=== PATIENT | female | born 1950 | race Caucasian/White ===

== ENCOUNTER → 2019-06-14 | Outpatient (CLI) | payer MEDICARE, BC, SELFPAY ==
--- NOTE | 2019-06-14 12:06 | US_ITS ---
STUDY: SUPERFICIAL ULTRASOUND - LEFT BUTTOCK AREA. REASON FOR EXAM: Female, 69 years old. Palpable abnormality. TECHNIQUE: A superficial ultrasound was performed with real-time and static lane-scale imaging. COMPARISON: None. FINDINGS: The palpable abnormality in the inferior aspect of the buttock corresponds to a 3.7 cm x 2.8 cm by 2.2 cm inhomogeneous soft tissue mass with vascularity. This has a heterogeneous appearance. A biopsy may be indicated. US/Ext Non Vasc Limited/Soft Tiss IMPRESSION: The palpable abnormality corresponds to a 3.7 cm x 2.8 cm x 2.2 cm heterogeneous soft tissue mass with increased vascularity. A biopsy may be indicated for further evaluation. Electronically Signed: Deonte Pimentel, at 13:42 EDT , Service support ,
== END | disposition home or self-care (01) ==
PROVIDERS: Family Provider Internal Medicine; PCP Internal Medicine; Referring Provider Family Medicine; Visit Provider Family Medicine
DX: R22.42 Localized swelling, mass and lump, left lower limb (principal)
CPT/HCPCS: 76882

== ENCOUNTER → 2019-12-29 09:30 | Outpatient (CLI) | payer MEDICARE, BC, SELFPAY ==
--- NOTE | 2019-12-29 09:45 | RAD_ITS ---
EXAM DESCRIPTION: Upper GI CLINICAL HISTORY: 69 years Female, CHRONIC REFLUX, STARTING THIS NOVEMBER 2019 HAS BEEN EXPERIENCING CHEST TIGHTNESS AND A TIGHTNESS IN THROAT -- 200 FUORO SEC, 185.19mGy, 120 FLUORO IMAGES COMPARISON: None. TECHNIQUE: A barium was administered. 3.2 minutes of fluoroscopy time was utilized along with 10 imaging sets FINDINGS: Visualized esophagus appears to be normal. Small sliding hiatal hernia was identified. Stomach filled and appeared to be normal. No mucosal ulcerations were seen. The duodenal cap filled and appeared normal. The duodenal C-loop appear to be normal. When the patient was placed in a left lateral decubitus position a marked amount of gastroesophageal reflux was identified up to the level of the thoracic inlet. RAD/Upper GI Single Contrast IMPRESSION: A small sliding hiatal hernia was identified with a marked amount of gastroesophageal reflux up to the thoracic inlet. Electronically Signed: Roverto Aguila, at 14:58 EST Tel , Service support ,
== END ==
PROVIDERS: PCP Internal Medicine; Referring Provider Nurse Practitioner Adult Health; Visit Provider Nurse Practitioner Adult Health
DX: K21.9 Gastro-esophageal reflux disease without esophagitis (principal); R13.10 Dysphagia, unspecified
CPT/HCPCS: 74240

== ENCOUNTER → 2024-06-05 | Outpatient (CLI) | payer MEDICARE, BC, SELFPAY ==
--- NOTE | 2024-06-05 13:49 | ECHOD_ITS ---
Reason For Study: CHEST PAIN Procedure This was a 2D Doppler, Color Flow transthoracic echocardiogram. Exam performed in department. Left Ventricle Normal LV size. Left ventricular systolic function is normal. The left ventricular ejection fraction is 65 %. No regional wall motion abnormalities noted. Right Ventricle Normal RV size. Normal systolic function. Atria Normal left atrium. Normal right atrium. Mitral Valve Normal mitral valve. Tricuspid Valve Normal tricuspid valve. Mild tricuspid valve insufficiency. Pulmonary artery systolic pressure is 30 mmHg. Aortic Valve Trisinus/trileaflet aortic valve. Pulmonic Valve Normal pulmonic valve. Great Vessels Normal aortic root. The pulmonary artery is normal size. Normal inferior vena cava. Pericardium/Pleural No pericardial effusion. MMode/2D Measurements & Calculations LVIDd: 4.0 cm IVSd: 0.72 cm Ao root diam: 2.9 cm LVIDs: 2.6 cm LVPWd: 0.91 cm RVDd: 3.2 cm FS: 36.4 % LAV(MOD-bp): 34.5 ml LVAd ap4: 22.6 cm2 SV(MOD-sp4): 41.0 ml LAV(MOD-bp) Indexed: 19.4 ml/m2 LVLd ap4: 7.1 cm LAV(MOD-sp2): 34.9 ml EDV(MOD-sp4): 60.0 ml LAV(MOD-sp4): 32.8 ml EDV(sp4-el): 61.1 ml LVAs ap4: 10.8 cm2 LVLs ap4: 5.3 cm ESV(MOD-sp4): 19.0 ml ESV(sp4-el): 18.7 ml EF(MOD-sp4): 68.3 % EF(sp4-el): 69.4 % SV(sp4-el): 42.4 ml LA A4 area: 15.0 cm2 LA dimension(2D): 3.6 cm RA A4 area: 12.5 cm2 TAPSE: 2.4 cm Time Measurements MV dec time: 0.22 sec Doppler Measurements & Calculations MV E max kiet: 87.4 cm/sec Lat Peak E' Kiet: 15.0 cm/sec Med Peak E' Kiet: 8.1 cm/sec MV A max kiet: 74.7 cm/sec E/E' lat: 5.8 E/E' med: 10.8 MV E/A: 1.2 Ao V2 max: 157.7 cm/sec LV V1 max: 142.2 cm/sec PA V2 max: 91.3 cm/sec Ao max P.0 mmHg LV V1 max P.1 mmHg TR max kiet: 259.7 cm/sec TR max P.0 mmHg ECHO/Echo Complete Interpretation Summary Normal LV size. Left ventricular systolic function is normal. The left ventricular ejection fraction is 65 %. Pulmonary artery systolic pressure is 30 mmHg. Ordering Physician: Neto Sharp Referring Physician: DE OLIVERA Performed By: Yana Emerson RDCS
== END | disposition home or self-care (01) ==
LOC: CVS 13:47
PROVIDERS: PCP Internal Medicine; Referring Provider Internal Medicine Cardiovascular Disease; Visit Provider Internal Medicine Cardiovascular Disease
DX: R07.9 Chest pain, unspecified (principal); I10 Essential (primary) hypertension; R06.02 Shortness of breath; R93.1 Abnormal findings on diagnostic imaging of heart and coronary circulation; E78.2 Mixed hyperlipidemia
CPT/HCPCS: 93306

== ENCOUNTER 2024-06-14 12:28 | Outpatient (CLI) | payer MEDICARE, BC, SELFPAY ==
[2024-06-14 12:39] VITALS: BP 131/71; PULSE 50; RESP 14; O2SAT 97; BMI 29.2
--- NOTE | 2024-06-14 12:42 | CT_ITS ---
STUDY: CT CHEST WITHOUT CONTRAST REASON FOR EXAM: Female, 74 years old. ABNORMAL FINDINGS ON HEART IMAGES *limited over read only* RADIATION DOSAGE (If Supplied By Facility): CTDIvol = ( 27.14 ) mGy, DLP = ( 1503.71 ) mGycm TECHNIQUE: Transaxial imaging was performed without the administration of intravenous contrast material. Individualized dose optimization techniques were used for this CT. COMPARISON: No relevant priors. FINDINGS: CHEST There is a 6.9 mm calcified granuloma in the peripheral lateral aspect of the right lower lobe. There is no demonstrated pleural abnormality. Normal heart and pericardium. Calcified right paratracheal lymph nodes. Calcified subcarinal and right hilar lymph nodes. Normal hilar regions. Normal unenhanced pulmonary arteries. Normal aorta arch and descending thoracic aorta. Normal osseous structures. Small hiatal hernia. CT/Limited Chest CT Cardiac Only IMPRESSION: No evidence of coronary artery calcification. Calcified mediastinal and right hilar lymph nodes. Calcified granuloma in the right lower lobe. Electronically Signed: Deonte Pimentel MD at 11:04 EDT ,
[2024-06-14 12:58] VITALS: PULSE 54
[2024-06-14] MEDS: Nitroglycerin SL (ED/IMG/CATH) 0.4 MG TABLET SL (12:58)
[2024-06-14 13:06] VITALS: BP 132/62; PULSE 55; RESP 16; O2SAT 98
[2024-06-14 13:07] LABS: CREATININE FINGERSTICK < 1.0 mg/dL (0.55-1.02); EGFR FINGERSTICK > 60.0000 mL/min (>60)
--- NOTE | 2024-07-04 15:15 | CCTA.WCONT ---
CCTA w/Cont Coronary Arteries Date of Study:: 06/14/24 Abnormal diagnostic imaging Coronary Calcium Scoring: High-resolution Computed Tomographic imaging of the chest was performed on [06/14/2024], with particular attention paid to the coronary arteries. Intravenous contrast agent was administered per protocol and images reconstructed and displayed. LEFT MAIN CORONARY ARTERY: Coronary calcium score of 0. This arises from the left main coronary cusp and has no atherosclerotic plaquing noted. [] LEFT ANTERIOR DESCENDING CORONARY ARTERY: Arises from the left main coronary artery and courses towards the apex of the ventricle with no significant atherosclerotic plaquing present. Coronary calcium score of 0 [] LEFT CIRCUMFLEX CORONARY ARTERY: Nondominant vessel arising from the left main coronary artery with no significant atherosclerotic plaquing noted. [] RIGHT CORONARY ARTERY: Dominant right coronary artery with no significant atherosclerotic plaquing present. [] THORACIC AORTA: Normal [] PULMONARY ARTERY: Normal [] LEFT ATRIUM/APPENDAGE: [] MITRAL VALVE: Normal [] AORTIC VALVE: [] LEFT VENTRICLE: [] CORONARY CALCIUM SCORE: 0 CT angio with no evidence of atherosclerotic plaquing present. []
== END 2024-06-14 23:59 | disposition home or self-care (01) ==
LOC: CT 12:29
PROVIDERS: PCP Internal Medicine; Referring Provider Internal Medicine Cardiovascular Disease; Visit Provider Internal Medicine Cardiovascular Disease
DX: R93.1 Abnormal findings on diagnostic imaging of heart and coronary circulation (principal); R06.02 Shortness of breath; R07.9 Chest pain, unspecified; I10 Essential (primary) hypertension; E78.2 Mixed hyperlipidemia; K44.9 Diaphragmatic hernia without obstruction or gangrene
CPT/HCPCS: 75571; 75574; 76380

== ENCOUNTER 2025-02-04 10:57 | Emergency (ER) | payer MEDICARE, BC, SELFPAY ==
[2025-02-04 10:58] VITALS: BP 143/67; PULSE 64; RESP 15; TEMP 36.4; O2SAT 97; BMI 30.2
--- NOTE | 2025-02-04 11:06 | ED.VIS.FALL ---
HPI HPI - Fall History of Present Illness Chief Complaint: Fall PFSH PFSH Medical History Hypercholesteremia Stage 3a chronic kidney disease (CKD) Dyspepsia Bleeding disorder Mixed hyperlipidemia HTN (hypertension) SOB (shortness of breath) Abnormal nuclear cardiac imaging test Arthropathy Diverticulosis of colon (without mention of hemorrhage) Internal hemorrhoids without mention of complication Esophageal reflux Osteoporosis Osteopenia Chest pain Home Medications ?Medication ?Instructions ?Recorded ?Last Taken ?Type acetaminophen 500 mg capsule 500 mg PO Q6H PRN pain 04/26/24 Unknown History carboxymethylcellulose sodium 0.5 1 drp ophthalmic (eye) DAILY 04/26/24 Unknown History % eye drops (Refresh Tears) famotidine 40 mg tablet 40 mg PO DAILY 04/26/24 Unknown History loratadine 10 mg tablet 10 mg PO DAILY PRN allergy symptoms 04/26/24 Unknown History multivitamin 1 tab PO DAILY 04/26/24 Unknown History naproxen sodium 220 mg tablet 220 mg PO BID PRN pain 04/26/24 Unknown History (Aleve) rosuvastatin 5 mg tablet 5 mg PO DAILY 04/26/24 Unknown History estradiol 0.01% (0.1 mg/gram) 1 appful vaginal 2XW 05/16/24 Unknown History vaginal cream amlodipine 5 mg tablet 5 mg PO QDAY #90 tabs 07/31/24 Unknown Rx oxycodone 5 mg tablet 5 mg PO Q6H PRN pain 4 days #16 02/04/25 Unknown Rx tabs Allergy/AdvReac Type Severity Reaction Status Date / Time alendronate sodium (From AdvReac Intermediate GI upset Verified 02/04/25 11:02 Fosamax) ibandronate sodium (From AdvReac Intermediate migraine Verified 02/04/25 11:02 Boniva) risedronate sodium (From AdvReac Intermediate bones Verified 02/04/25 11:02 Actonel) aching Family History Mother Thyroid disorder Osteoporosis Aortic stenosis Father Hypertension Osteoporosis Sister Thyroid disorder Brother Thyroid disorder CAD (coronary artery disease), Onset Age: 50 stents Surgical History Hx of elbow surgery (~2001) Hx of knee surgery (~2001) History of facial surgery Hx of hand surgery History of tonsillectomy and adenoidectomy Social History Smoking Status: Never smoker how long ago did patient quit smokin alcohol intake: current alcohol intake frequency: a few times a month substance use type: does not use caffeine: Yes Type: tea Number of servings: 4 EXAM Physical Exam Const Vital Signs: 02/04/25 10:58 02/04/25 11:16 02/04/25 12:58 Temperature 97.6 F L Temperature Source Temporal Pulse Rate 64 75 Respiratory Rate 15 16 Respiratory Effort Normal Non-Labored Blood Pressure 143/67 H 134/73 H Blood Pressure Mean 92 93 Pulse Ox 97 97 Oxygen Delivery Method Room Air Room Air Room Air 02/04/25 13:58 Temperature 97.6 F L Temperature Source Pulse Rate 75 Respiratory Rate 16 Respiratory Effort Blood Pressure 134/73 H Blood Pressure Mean 93 Pulse Ox 97 Oxygen Delivery Method MDM MDM MDM Narrative Medical decision making narrative: HISTORY OF PRESENT ILLNESS: Chief complaint: Fall 74-year-old female presents after fall. No head trauma. Denies loss of consciousness. Notes transient lightheadedness after fall. She states this occurs when she has orthopedic injuries. She states she severe left wrist pain. Also notes pain in her knees which she says is not severe. Also notes pain right elbow REVIEW OF SYSTEMS: Pertinent positives: Head trauma, wrist pain, elbow and knee pain Pertinent negatives: Loss of consciousness PHYSICAL EXAM: Nursing triage notes reviewed, Vital signs reviewed primary Survey Airway: Intact Breathing: Bilateral breath sounds Circulation: Palpable bilateral femorals, Palpable bilateral radial, Palpable bilateral DP and Palpable bilateral PT Disability / Spine precautions GCS Score: Eye Openin Verbal Response: 5 Motor Response: 6 Secondary Survey Constitutional: Please see MDM Head: abrasion noted to chin, Midface stable, NO jaw malocclusion, No Cephalohematoma, and No Lacerations noted Eye: Pupils equal round and reactive to light, Extraocular muscles intact and No periorbital ecchymosis or stepoff, no evidence of entrapment ENT: Oropharynx clear, no lacerations, no hemotympanum, no raccoon eyes or bray sign Cervical spine / Neck: No cervical spine bony tenderness, crepitance, or stepoff deformity Trachea midline Lungs: Clear to auscultation, No asymmetric rise and No crepitus, no flail chest Cardiac: Regular rate and rhythm and No murmurs Abdomen: Soft, Nontender and No rebound Pelvis: Pelvis stable to compression : No evidence of genital injury Back: No midline bony tenderness to thoracic/lumbar/sacral spines Neuro: Alert and oriented x3, neuro exam at baseline, cranial nerves II through XII are intact. No pain with extraocular muscle movement. There is negative test of skew. 5 of 5 strength in upper and lower extremities in flexion extension. Intact sensation to light touch in upper and lower extremity dermatomes. No truncal or extremity ataxia. No dysdiadochokinesia. Normal gait. 2+ reflexes in upper and lower extremities. No meningeal signs. Negative Babinski. NIH of 0. Extremities: NO gross Deformities, TTP over left wrist, bruising noted over left wrist, no obvious pain or bruising over other joints Psych: Normal affect Nursing triage notes reviewed, Vital signs reviewed MEDICAL DECISION MAKING: Chief Complaint: please see HPI External records reviewed: Reviewed prior imaging Factors affecting care: Hyperlipidemia, hypertension Social determinants of health: none History obtained from others: none Consults: orthopedic surgery (Dr. Vegas) MDM Narrative: I considered the following differential diagnosis: ICH, wrist fracture/dislocation/contusion I obtained imaging studies to further evaluate for traumatic injury. ALL IMAGES (IF OBTAINED) HAVE BEEN PERSONALLY REVIEWED AND INTERPRETED BY MYSELF. X-ray left wrist read reviewed person myself showed a distal radius fracture with some palmar angulation. CT scan of the brain was negative for ICH or other traumatic abnormality Splint was applied. Patient was neurovascular intact prior to and after splinting. Discussed with orthopedic surgeon on-call who recommended discharge and prompt follow-up. [id number] and narcotic pain recommendations were given. Strict return precautions were discussed. Compartment syndrome precautions were discussed. The patient and/or family, caregivers express understanding. The patient and/or family, caregivers agrees with the plan. Shared decision making: I will have a discussion with the patient and or visitors regarding risk/benefits of further testing or admission. They will be made aware of of the risk/benefits inherent in this decision they will be given the opportunity to voice understanding. Total critical care time today provided was at least 0 minutes. This excludes separately billable procedures. Critical care time (if documented) is secondary to the patient having high probability of clinically significant/life threatening deterioration in the patient's condition which required my urgent intervention. Impression: 1. Fall 2. Closed head injury 3. Acute left wrist pain Dispo: Discharge home This note was generated with [employer] dictation software. It may contain incorrect words, spelling, and punctuation that were not noted in review of the chart prior to signing. Radiography Diagnostic Testing: Clinical Impression(s) from Imaging Studies Brain CT 02/04/25 11:23 IMPRESSION: 1. No acute intracranial finding. 2. Findings of chronic microvascular ischemic changes and age-related changes. Reading Location: [id number] Wrist X-Ray 02/04/25 11:23 IMPRESSION: Radius fractures as detailed Reading Location: [facility] Procedures Upper Extremity Splints Upper Extremity Splint: Plaster Splint Fabrication: Fabricated Location: Left Discharge Plan Triage Chief Complaint: Fall ED Provider: Jesu Yuan Dx/Rx/DC Orders Instructions: ED Fall with Uncertain Cause, ED Fracture, Wrist, General Prescriptions: New oxycodone 5 mg tablet 5 mg PO Q6H PRN (Reason: pain) 4 Days Qty: 16 0RF No Action rosuvastatin 5 mg tablet 5 mg PO DAILY famotidine 40 mg tablet 40 mg PO DAILY loratadine 10 mg tablet 10 mg PO DAILY PRN (Reason: allergy symptoms) carboxymethylcellulose sodium [Refresh Tears] 0.5 % drops 1 drp ophthalmic (eye) DAILY multivitamin Tablet 1 tab PO DAILY naproxen sodium [Aleve] 220 mg tablet 220 mg PO BID PRN (Reason: pain) acetaminophen 500 mg capsule 500 mg PO Q6H PRN (Reason: pain) estradiol 0.01 % (0.1 mg/gram) cream 1 appful vaginal 2XW Rx Instructions: for 14 days amlodipine 5 mg tablet 5 mg PO QDAY Qty: 90 3RF Primary Care Provider: Chichi Page Referrals: Ge Mejia DO [Med Staff - Active Staff] - Chichi Page MD [Primary Care Provider] - Activity Restrictions/Additional Instructions: Thank you for trusting us with your care today! The x-ray of your left wrist showed a wrist fracture. Please take Tylenol (2 pills, 650 mg), ibuprofen (2 pills, 400 mg) every 6 hours as needed for pain and fever control. Please take oxycodone for breakthrough pain. Please return to the emergency department if your symptoms change or worsen. If you develop discoloration, severe pain, numbness tingling in your injured extremity please remove the splint immediately. Please follow with Orthopedic Surgeon (Dr. Mejia) for further outpatient evaluation and management. Print Language: Malay Disposition Disposition: Home, Self Care Discharge Date/Time: 02/04/25 13:58
--- NOTE | 2025-02-04 11:23 | CT_ITS ---
EXAM: BRAIN/HEAD WITHOUT CONTRAST CLINICAL HISTORY: 74 y/o F with HEAD TRAUMA AFTER FALL yesterday in parking lot, abrasion to chin, history of facial surgery and bleeding disorder. COMPARISON: None. TECHNIQUE: Routine CT imaging of the head without IV contrast. Additional multiplanar reformats were obtained. Dose reduction techniques were used including intermediate exposure control (AEC),iterative reconstruction technique, and/or mA and/or KV dose adjustments based on patient's size. FINDINGS: Mild generalized cerebral volume loss with concordant prominence of the ventricles and subarachnoid spaces. Mild scattered supratentorial white matter hypodensities. The lane-white matter interfaces are otherwise maintained. No acute intracranial hemorrhage or herniation. The basal cisterns are patent. Mucosal thickening of the bilateral maxillary sinuses. The orbits and mastoids are unremarkable. No acute calvarial fracture or scalp hematoma. CT/Brain/Head without Contrast IMPRESSION: 1. No acute intracranial finding. 2. Findings of chronic microvascular ischemic changes and age-related changes. Reading Location: [id number]
--- NOTE | 2025-02-04 11:23 | RAD_ITS ---
EXAM: Left wrist radiograph exam, three-view CLINICAL HISTORY: Pain status post fall yesterday, initial encounter COMPARISON: None. TECHNIQUE: PA frontal, oblique and lateral radiographs were obtained of the left wrist. FINDINGS: There is a radial styloid process fracture. Linear sclerotic focus in the distal radial metaphysis could possibly represent impaction fracture or butterfly fragment as suggested on the lateral view. Distal radius fracture demonstrates at least 4 mm palmar offset. RAD/Wrist min 3 Views IMPRESSION: Radius fractures as detailed Reading [facility]
[2025-02-04 12:58] VITALS: BP 134/73; PULSE 75; RESP 16; O2SAT 97
[2025-02-04 13:58] VITALS: BP 134/73; PULSE 75; RESP 16; TEMP 36.4; O2SAT 97
== END 2025-02-04 13:58 | disposition home or self-care (01) ==
PROVIDERS: Emergency Provider Emergency Medicine; PCP Internal Medicine; Visit Provider Emergency Medicine
DX: S52.502A Unspecified fracture of the lower end of left radius, initial encounter for closed fracture (principal); S00.81XA Abrasion of other part of head, initial encounter; M25.561 Pain in right knee; M25.562 Pain in left knee; M25.521 Pain in right elbow; W19.XXXA Unspecified fall, initial encounter; I10 Essential (primary) hypertension; K21.9 Gastro-esophageal reflux disease without esophagitis; E78.00 Pure hypercholesterolemia, unspecified; M81.0 Age-related osteoporosis without current pathological fracture; Z79.899 Other long term (current) drug therapy
CPT/HCPCS: 29125; 70450; 73110; 99282

== ENCOUNTER 2025-02-09 09:27 | Day surgery (SDC) | payer MEDICARE, BC, SELFPAY ==
--- NOTE | 2025-02-08 10:31 | PAT.ANE_ITS ---
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 When Was Last Pacemaker Check QUESTION #4 FULL TEXT: You/Your Family Experience fever (hyperthermia) with Anesthesia Last Oral Intake Last Oral intake: Last Oral Intake NPO since Meds taken in AM with sips of water? 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 - automatic outsole cutter: PONV - automatic outsole cutter Female Yes 02/08/25 08:58 HX of Motion Sickness Yes 02/08/25 08:58 HX of N/V After Surgery No 02/08/25 08:58 Non-Smoker Yes 02/08/25 08:58 Duration of Surgery greater Yes 02/08/25 08:58 than 60 minutes Number of Risk Factors 4 02/08/25 08:58 PONV Score Severe Risk 02/08/25 08:58 Height & Weight Height & Weight: Anesthesia: Height & Weight Height 5 ft 3 in 02/08/25 09:42 Weight: 76.657 kg 02/08/25 09:42 Respiratory Assessment Respiratory Assessment - automatic outsole cutter: Respiratory Tract Infection Hx - automatic outsole cutter Hx Respiratory Tract Infection No 02/08/25 08:58 STOP Sleep Apnea STOP Sleep Apnea - automatic outsole cutter: STOP Sleep Apnea - automatic outsole cutter Hx Hypertension Yes: CONTROLLED WITH MED 02/08/25 08:58 Hx Sleep Apnea No 02/08/25 08:58 CPAP BIPAP Do you snore loudly (louder No 02/08/25 08:58 than talking or can be heard Do you often feel tired/ No 02/08/25 08:58 fatigued/ sleepy during daytime? Has anyone observed you stop No 02/08/25 08:58 breathing during sleep? STOP Results Negative 02/08/25 08:58 QUESTION #5 FULL TEXT : Do you snore loudly (louder than talking or can be heard through closed doors)? 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 Specify any problems Hx of Preganancy in last 3 No 02/08/25 08:58 Months Nurse Filling Out Transfusion DSCHRIBER 02/08/25 08:58 & Questions: Date: 02/08/25 02/08/25 08:58 Time: 09:00 02/08/25 08:58 Patient unable to answer at this time (ie. confused, unrespo /Reproduction History /Reproductive History - automatic outsole cutter: /Reproductive Hx- automatic outsole cutter Hx Now No 02/08/25 08:58 Gestational Age (in weeks): EDC: Hx Hx Para Hx Section SAB No 02/08/25 08:58 Active Medications Active Medications: Current Medications Generic Name Dose Route Start Last Admin Trade Name Freq PRN Reason Stop Dose Admin Cefazolin Sodium 2 gm/ N/A 20 mls @ 400 mls/hr 02/09/25 11:00 IV 02/09/25 11:02 X1 ONE [facility] Medical History (Updated 02/08/25 @ 09:09 by Jayla Hernandez) Loss of hearing Wears glasses Alcohol use Post-menopausal Abrasion Arthritis Anemia Excessive bleeding Back pain Migraine headache Injury of head and neck History of hiatal hernia Ulcerative proctitis Gastric reflux Non-smoker Shortness of breath on exertion Leg cramps History of pain when walking Cardiology follow-up encounter History of echocardiogram History of stress test Stage 3a chronic kidney disease (CKD) Mixed hyperlipidemia HTN (hypertension) Internal hemorrhoids without mention of complication Osteoporosis Osteopenia Home Medications ?Medication ?Instructions ?Recorded ?Last Taken ?Type acetaminophen 500 mg capsule 500 mg PO Q6H PRN pain Unknown History carboxymethylcellulose sodium 0.5 1 drp ophthalmic (ey e) DAILY 04/26/24 Unknown History % eye drops (Refresh Tears) famotidine 40 mg tablet 40 mg PO QHS 04/26/24 Unknow n History loratadine 10 mg tablet 10 mg PO DAILY PRN allergy s ymptoms 04/26/24 Unknown History multivitamin 1 tab PO DAILY 04/26/24 Unkn own History naproxen sodium 220 mg tablet 220 mg PO BID PRN pain 0 04/26/24 Unknown History (Aleve) rosuvastatin 5 mg tablet 5 mg PO QHS 04/26/24 Unknown History estradiol 0.01% (0.1 mg/gram) 1 appful vaginal 2XW Unknown History vaginal cream amlodipine 5 mg tablet 5 mg PO QDAY #90 tabs Unknown Rx Allergy/AdvReac Type Severity Reaction Status Date / Time alendronate sodium (From AdvReac Intermediate GI upset Verified 02/08/25 08:53 Fosamax) ibandronate sodium (From AdvReac Intermediate migraine Verified 02/08/25 08:53 Boniva) risedronate sodium (From AdvReac Intermediate bones Verified 02/08/25 08:53 Actonel) aching Family History Mother Thyroid disorder Osteoporosis Aortic stenosis Father Hypertension Osteoporosis Sister Thyroid disorder Brother Thyroid disorder CAD (coronary artery disease), Onset Age: 50 stents Surgical History (Updated 02/08/25 @ 09:09 by Jayla Hernandez) Hx of colonoscopy History of wisdom tooth extraction Hx of elbow surgery (~2001) Hx of knee surgery (~2001) History of facial surgery Hx of hand surgery History of tonsillectomy and adenoidectomy Social History Smoking Status: Never smoker how long ago did patient quit smokin alcohol intake: current alcohol intake frequency: a few times a month substance use type: does not use caffeine: Yes Type: tea Number of servings: 4 Audit: Pertinent Findings Pertinent Findings EKG Perinent findings: May 16, 2024. Sinus bradycardia within normal limits Stress test pertinent findings: April 21, 2023. SPECT perfusion study is abnormal. No evidence of infarct. Mild less than 10% ischemia in the territory of the RCA. Ejection fraction is 75%. There is transient ischemic dilation of the left ventricle with stress. Echo (EF%) pertinent findings: June 05, 2024. Ejection fraction 65%. PA systolic pressure is 30 mmHg. No aortic valve stenosis is noted. Consult pertinent findings: July 31, 2024. 1. Shortness of breath-resolved. 2. Abnormal nuclear cardiac [id number] coronary CT angio. Calcium score is 0. False positive stress test. 3. Wjoafpvdjdgo-hvssskj-[id number] complaining of postural orthostatic lightheadedness. Will stop metoprolol. No coronary artery disease was seen on CT angio. DC the Imdur. Start on amlodipine 5 mg daily. 4. Postural lightheadedness-patient is on metoprolol. Will DC metoprolol. Recommendation Anesthesia Recommendation Anesthesia recommendation: OPTIMIZED for anesthesia
[2025-02-09] VITALS (9 sets, daily range): BP systolic 114–133; BP diastolic 54–73; PULSE 64–75; RESP 16–18; TEMP 36.1–36.6; O2SAT 94–99; BMI 30.2
[2025-02-09] MEDS: 0.9% Normal Saline (1000mL) 1,000 ML 15 ML IV (10:10)
--- NOTE | 2025-02-09 10:16 | PCM.PRE.AN2 ---
ASA Classification* ASA Classification ASA Classification: 2 Assessment & Plan Anesthesia* Anesthesia Assessment Anesthesia Assessment: Discussed sedation and/or anesthesia options, risks, benefits, and alternatives with patient/parents/legal guardian/POA. Questions invited. The patient/parents/legal guardian/POA seems to understand and agrees to proceed with anesthesia plan. Reviewed the physical assessment, medical history, allergy history and patient home medications list prior to surgery/procedure/anesthetic and documented any changes. Performed airway and anesthesia risk assessments. 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 When Was Last Pacemaker Check QUESTION #4 FULL TEXT: You/Your Family Experience fever (hyperthermia) with Anesthesia Last Oral Intake Last Oral intake: Last Oral Intake NPO since Meds taken in AM with sips of water? 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 operator Female Yes 02/08/25 08:58 HX of Motion Sickness Yes 02/08/25 08:58 HX of N/V After Surgery No 02/08/25 08:58 Non-Smoker Yes 02/08/25 08:58 Duration of Surgery greater Yes 02/08/25 08:58 than 60 minutes Number of Risk Factors 4 02/08/25 08:58 PONV Score Severe Risk 02/08/25 08:58 Height & Weight Height & Weight: Anesthesia: Height & Weight Height 5 ft 3 in 02/08/25 09:42 Weight: 76.657 kg 02/08/25 09:42 Respiratory Assessment Respiratory Assessment - hydraulic bull riveter operator: Respiratory Tract Infection Hx - hydraulic bull riveter operator Hx Respiratory Tract Infection No 02/08/25 08:58 STOP Sleep Apnea STOP Sleep Apnea - hydraulic bull riveter operator: STOP Sleep Apnea - hydraulic bull riveter operator Hx Hypertension Yes: CONTROLLED WITH MED 02/08/25 08:58 Hx Sleep Apnea No 02/08/25 08:58 CPAP BIPAP Do you snore loudly (louder No 02/08/25 08:58 than talking or can be heard Do you often feel tired/ No 02/08/25 08:58 fatigued/ sleepy during daytime? Has anyone observed you stop No 02/08/25 08:58 breathing during sleep? STOP Results Negative 02/08/25 08:58 QUESTION #5 FULL TEXT : Do you snore loudly (louder than talking or can be heard through closed doors)? 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 Specify any problems Hx of Preganancy in last 3 No 02/08/25 08:58 Months Nurse Filling Out Transfusion DSCHRIBER 02/08/25 08:58 & Questions: Date: 02/08/25 02/08/25 08:58 Time: 09:00 02/08/25 08:58 Patient unable to answer at this time (ie. confused, unrespo /Reproduction History /Reproductive History - hydraulic bull riveter operator: /Reproductive Hx- hydraulic bull riveter operator Hx Now No 02/08/25 08:58 Gestational Age (in weeks): EDC: Hx Hx Para Hx Section SAB No 02/08/25 08:58 Active Medications Active Medications: Current Medications Generic Name Dose Route Start Last Admin Trade Name Freq PRN Reason Stop Dose Admin Cefazolin Sodium 2 gm/ N/A 20 mls @ 400 mls/hr 02/09/25 11:00 IV 02/09/25 11:02 X1 ONE Sodium Chloride 1,000 mls @ 15 mls/hr 02/09/25 10:10 IV .Q48H STEVO PFSH Medical History Loss of hearing Wears glasses Alcohol use Post-menopausal Abrasion Arthritis Anemia Excessive bleeding Back pain Migraine headache Injury of head and neck History of hiatal hernia Ulcerative proctitis Gastric reflux Non-smoker Shortness of breath on exertion Leg cramps History of pain when walking Cardiology follow-up encounter History of echocardiogram History of stress test Stage 3a chronic kidney disease (CKD) Mixed hyperlipidemia HTN (hypertension) Internal hemorrhoids without mention of complication Osteoporosis Osteopenia Home Medications ?Medication ?Instructions ?Recorded ?Last Taken ?Type acetaminophen 500 mg capsule 500 mg PO Q6H PRN pain 04/26/24 Unknown History carboxymethylcellulose sodium 0.5 1 drp ophthalmic (eye) DAILY 04/26/24 Unknown History % eye drops (Refresh Tears) famotidine 40 mg tablet 40 mg PO QHS 04/26/24 Unknown History loratadine 10 mg tablet 10 mg PO DAILY PRN allergy symptoms 04/26/24 Unknown History multivitamin 1 tab PO DAILY 04/26/24 Unknown History naproxen sodium 220 mg tablet 220 mg PO BID PRN pain 04/26/24 Unknown History (Aleve) rosuvastatin 5 mg tablet 5 mg PO QHS 04/26/24 Unknown History estradiol 0.01% (0.1 mg/gram) 1 appful vaginal 2XW 05/16/24 Unknown History vaginal cream amlodipine 5 mg tablet 5 mg PO QDAY #90 tabs 07/31/24 02/09/25 07:00 Rx Allergy/AdvReac Type Severity Reaction Status Date / Time alendronate sodium (From AdvReac Intermediate GI upset Verified 02/09/25 09:57 Fosamax) ibandronate sodium (From AdvReac Intermediate migraine Verified 02/09/25 09:57 Boniva) risedronate sodium (From AdvReac Intermediate bones Verified 02/09/25 09:57 Actonel) aching Family History Mother Thyroid disorder Osteoporosis Aortic stenosis Father Hypertension Osteoporosis Sister Thyroid disorder Brother Thyroid disorder CAD (coronary artery disease), Onset Age: 50 stents Surgical History Hx of colonoscopy History of wisdom tooth extraction Hx of elbow surgery (~2001) Hx of knee surgery (~2001) History of facial surgery Hx of hand surgery History of tonsillectomy and adenoidectomy Social History Smoking Status: Never smoker how long ago did patient quit smokin alcohol intake: current alcohol intake frequency: a few times a month substance use type: does not use caffeine: Yes Type: tea Number of servings: 4 Review of Systems (Anesthesia) ROS Narrative System reviewed and no additional complaints, except as documented.
[2025-02-09 10:53] LABS: International Normalized Ratio 0.9; Prothrombin Time (Protime)PT. 12.4 SECONDS (11.7-14.9)
[2025-02-09 10:54] LABS: Partial Thromboplast Time 23.6 Seconds (24.1-36.2)
--- NOTE | 2025-02-09 10:57 | PCM.HP.BLA ---
History and Physical Date of Admission: 02/09/25 [facility] [address] [place] [address] OFFICE VISIT Date of Service: 02/07/25 MR#: [id number] Acct: [id number] Name: BORA DIXON Rep #: [id number] : 1950 Provider: Dr. Ge Mejia DO Age/Sex: 74/F Location: [facility] [place] Status: Signed Intake Vital Signs 02/04/2510:58 02/07/2510:28 Height 5 ft 3 in 5 ft 3 in Weight: 169 lb 8 oz BMI 30.0 Intake Visit Reasons: LEFT WRIST Chief Complaint: Left wrist Fracture Accompanied by: Friend Is patient in pain?: Yes Pain scale (1-10): 2 Allergies alendronate sodium (From Fosamax) Adverse Reaction (Intermediate, Verified 02/07/25 10:31) GI upsetibandronate sodium (From Boniva) Adverse Reaction (Intermediate, Verified 02/07/25 10:31) migrainerisedronate sodium (From Actonel) Adverse Reaction (Intermediate, Verified 02/07/25 10:31) bones aching Medications ?Medication ?Instructions ?Recorded ?Confirmed ?Type acetaminophen 500 mg capsule 500 mg PO Q6H PRN pain 04/26/24 02/07/25 History carboxymethylcellulose sodium 0.5 1 drp ophthalmic (eye) DAILY 04/26/24 02/07/25 History % eye drops (Refresh Tears) famotidine 40 mg tablet 40 mg PO DAILY 04/26/24 02/07/25 History loratadine 10 mg tablet 10 mg PO DAILY PRN allergy symptoms 04/26/24 02/07/25 History multivitamin 1 tab PO DAILY 04/26/24 02/07/25 History naproxen sodium 220 mg tablet 220 mg PO BID PRN pain 04/26/24 02/07/25 History (Aleve) rosuvastatin 5 mg tablet 5 mg PO DAILY 04/26/24 02/07/25 History estradiol 0.01% (0.1 mg/gram) 1 appful vaginal 2XW 05/16/24 02/07/25 History vaginal cream amlodipine 5 mg tablet 5 mg PO QDAY #90 tabs 07/31/24 02/07/25 Rx Have you fallen in the past year?: Yes PFSH Medical History Hypercholesteremia Stage 3a chronic kidney disease (CKD) Dyspepsia Bleeding disorder Mixed hyperlipidemia HTN (hypertension) SOB (shortness of breath) Abnormal nuclear cardiac imaging test Arthropathy Diverticulosis of colon (without mention of hemorrhage) Internal hemorrhoids without mention of complication Esophageal reflux Osteoporosis Osteopenia Chest pain Surgical History Hx of elbow surgery (~2001) Hx of knee surgery (~2001) History of facial surgery Hx of hand surgery History of tonsillectomy and adenoidectomy Family History Mother Thyroid disorder Osteoporosis Aortic stenosisFather Hypertension OsteoporosisSister Thyroid disorderBrother Thyroid disorder CAD (coronary artery disease), Onset Age: 50 stents Social History Smoking Status: Never smoker how long ago did patient quit smokin alcohol intake: current alcohol intake frequency: a few times a month substance use type: does not use caffeine: Yes Type: tea Number of servings: 4 HPI LEFT WRIST Details: This documentation accurately reflects the service provided and the decisions made by me, Dr. Ge Mejia, DO 02/07/25 0802. Part of today?s visit was documented by Fabiano Camarena MA, acting as scribe. BORA DIXON is a 74 year old F LHD here today for left wrist fracture DOI 02/03/2025 patient tripped getting out of the car fell on the payment onto an outstretched left hand try to catch herself went to the ER 02/04/2025 x-rays were taken demonstrating a fracture she was placed in a sugar-tong splint which was very uncomfortable for her. She denies any numbness or tingling. 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 Ortho Exam General General: Yes no acute distress and Yes well groomed Neurologic: Yes alert and Yes oriented x3 Psychologic: Yes reasonable and appropriate Left Wrist/Hand WRIST: Splint was removed there was swelling and ecchymosis however positive wrinkle sign radial median ulnar nerves and PIN intact. Palpable radial pulse intact sensation light touch. No open wound Constitutional: Well-developed; well-nourished; in no acute distress Eyes: No jaundice ENT: Nares patent; no obvious deformity Cardiovascular: No cyanosis; clubbing; or edema Lymphatic: No adenopathy in area of examination Skin: No rashes or lesions in the area of examination and intact Neurologic: Alert and oriented x 3 Psychiatric: Mood and affect appropriate Supplemental Info 02/07/2025 x-ray left wrist: There is a distal radius intra-articular fracture with displacement and angulation, there is osteopenia present 02/04/2025 x-ray left wrist: There is a radial styloid process fracture. Linear sclerotic focus in the distal radial metaphysis could possibly represent impaction fracture or butterfly fragment as suggested on the lateral view. Distal radius fracture demonstrates at least 4 mm palmar offset. Coding Level of Care Code Off vis,new,level 3 Diagnoses Closed Chun's fracture of left radius, initial encounter S52.562A Encounter type: initial encounter Fracture type: closed Fracture morphology: Chun's Assessment and Plan Assessment and Plan (1) Distal radius fracture, left: Status: Acute Qualifiers: Encounter type: initial encounter Fracture type: closed Fracture morphology: Chun's Qualified Code(s): S52.562A - Chun's fracture of left radius, initial encounter for closed fracture Orders: Orders Wrist min 3 Views Today S62.109A - Fracture of unspecified carpal bone, unspecified wrist, initial encounter for closed fracture Plan Obtained and reviewed left wrist x-rays with the patient today. Explained to her that she does have an intra-articular distal radius fracture with displacement she also has a spike of bone that is projecting perpendicular to the shaft which can cause irritation likely she does not have any nerve symptoms today. The fracture is displaced it is better appreciated on the lateral view and it is, there is also a nondisplaced extension into the radial styloid that is comminuted. We did discuss Her options: Surgical pause nonsurgical intervention including risk and benefits of both. Surgical intervention would not consist of open reduction internal fixation with plate and screws which has the benefit of early mobilization and fracture realignment minimizing risk of posttraumatic arthritis however it still can occur, in addition risks include but are not limited to infection nerve artery soft tissue damage hardware irritation or failure, stiffness. Alternatively we could immobilize the wrist for 6 weeks. Due to her crocheting and left hand dominance and flute playing she wishes to proceed with ORIF. Did place her in a plaster splint today in the meantime before surgery. Explained she should not take any Ibuprofen/Aleve leading up to surgery. She can take Tylenol leading up to surgery. Placed the patient in a plaster splint today. Explained to try and keep it dry if she can. She should try to keep the arm elevated as much as possible. Follow up after surgery for post-op appointments or sooner if pain, swelling, numbness or associated symptoms, or concerns develop. All questions answered. Patient in agreement of plan. Clinical Quality Measures Falls Risk Screening/Assistive Devices Have you fallen in the past year?: Yes 02/07/25 4333 <Electronically signed by Ge Mejia DO> Date Ge Mejia DO I have examined the patient and the H&P has been reviewed. There are no clinical changes since date of exam.
[2025-02-09] MEDS: Cefazolin 2 GM in Syringe IV (11:19)
--- NOTE | 2025-02-09 11:20 | RAD_ITS ---
EXAM: XR Left Wrist, 2 Views CLINICAL INDICATION: ORIF LT WRIST TECHNIQUE: Frontal and lateral views of the left wrist. COMPARISON: No relevant prior studies available. FINDINGS: BONES/JOINTS: Fluoroscopic guided images were used intraoperatively. Total 5 images were obtained. Fixation plate and screws to the distal radius. Total fluoroscopy time 42.4 seconds. Total radiation dose 0.78 mGy. No acute fracture. No dislocation. SOFT TISSUES: Unremarkable. No radiopaque foreign body. RAD/Wrist 2 Views IMPRESSION: Fluoroscopic guided images were used intraoperatively flared. Please refer to the operative note for further details. Reading [facility]
--- NOTE | 2025-02-09 12:31 | OP.PCM_ITS ---
Operative Report (Standard) Operative Information Date of Procedure: 02/09/25 Pre-Operative Diagnosis: Left intra-articular displaced distal radius fracture Post-Operative Diagnosis: Same Surgery/Procedure Performed: Open reduction internal fixation left distal radius awning assembler: Yes Route Agent: Cherry Ramos Tasks completed by secretary administrative assistant: Opening & closing and Retracting Type of Anesthesia: General RN Documented Start/Stop Times: Operation Date: 02/09/25 11:00 Case Time Into Pre-Op 02/09/25 10:02 Anesthesia Start 02/09/25 11:04 Into Room 02/09/25 11:04 Procedure Start 02/09/25 11:28 Procedure End 02/09/25 12:27 Procedure Start Time: Procedure Stop Time: : Select all DRAINS/GRAFTS/IMPLANTS that apply: Implanted device Implanted device details: Synthes distal radius variable angle locking plate Estimated Blood Loss: 5 Specimen collected: No Description of surgery: Preoperative diagnosis: Displaced intra-articular greater than 3 fragments distal radius fracture Postoperative diagnosis: Same Anesthesia: [General with axillary block} Procedure: ORIF of the distal radius Implants: Synthes distal radius variable angle locking plate Tourniquet time: 43 minutes Complications: None Indication for procedure: 74-year-old female patient sustained injury to her dominant arm sustaining a displaced intra-articular distal radius fracture. She also had a spike of bone that was perpendicular to the shaft. 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 Including the risk of bleeding infection nerve artery tissue damage need for further surgery continued pain postoperative stiffness need for postoperative physical therapy and the expected postoperative course. Procedure: The patient was met in the preoperative holding area the operative extremity was identified by both patient and physician and marked. Patient was met by anesthesia she was brought back to the operating room on a wheeled cart and transferred to the operating table in the supine position anesthesia was started. A well-padded tourniquet was placed on the upper arm of the operative extremity. She was prepped and draped in the usual sterile fashion. A Time out was called to ensure the proper patient procedure and extremity were being contemplated. A 15 blade scalpel was used to make a linear incision over the FCR tendon this was carried down through the skin and subcutaneous tissue. Electrocautery was used to maintain hemostasis. Caridad retractors were used. The FCR tendon sheath was incised and the FCR tendon was mobilized radially. A deep blade scalpel was used to perforate the fascia of the deep FCR tendon sheath and Littler scissors were used to dissect proximally and distally. Blunt dissection was performed a paty was placed on the radial and ulnar side of the radius. The pronator quadratus was partially torn from the injury and was released off the radial border of the radius with electrocautery and was elevated with a crooks elevator. The Hohmann retractors were then placed deep to this muscle. The fracture site was visualized and was freed of hematoma and clot debris with the use of small rongeur and [place]. The fracture was then reduced with the use of a [place] and ulnar deviation and wrist flexion. This was checked under fluoroscopy to ensure that an adequate reduction could be performed. A plate was then positioned over the fracture site and temporarily fixed to the bone with K wires. A cortical screw was then placed in the shaft and sequential locking screws were placed distally this was checked on both AP and lateral projections to ensure screw placement was not penetrating the joint and was in the proper location. Bone drill sleeve was used for the radial styloid screw and a variable angle fashion. The remainder of the cortical screws were placed in the shaft. And the fracture and hardware were visualized in both AP and lateral projections in good alignment and fracture positioning. The wound was thoroughly irrigated. Pronator quadratus was not repairable. A subcutaneous stitch with 3-0 Vicryl was performed followed by 4-0 nylon vertical mattress stitches. Followed by Xeroform 4 x 4 ABD web roll stockinette more web roll volar paster splint and an Virgilio wrap. The tourniquet was let down. There was no complications intraoperatively and the patient was brought back to the PACU in stable condition where she received an axillary block. All counts were correct. Surgical Findings: Comminuted intra-articular distal radius fracture Complications Complications: No
--- NOTE | 2025-02-09 12:40 | EX.PCM.DISCH ---
Discharge Instructions Diet Discharge Diet: No restrictions Dressing / Incision Call your doctor if you observe: Shortness of breath and Chest pain Additional Dressing/Incision Instructions:: Strict elevation of operative extremity above heart for next 72 hours. Ice 15 minutes on 15 minutes off. Continue ice and elevation for 7 days postoperatively. Encourage finger range of motion. No lifting pushing or pulling more than a coffee cup. Must keep splint on clean and dry. Follow-up in office in 1 week Follow Up Care When: 1 week Test Results: Test results from this visit will be discussed in further detail at your follow-up appointment, if applicable. Discharge Plan Admission Primary Reason for Your Visit: Left distal radius open reduction internal fixation Attending Provider: Ge Mejia Primary Care Provider: Chichi Page Instructions Print Language: Surinamese Discharge Orders/Prescriptions Prescriptions: New hydrocodone-acetaminophen 5-325 mg tablet 1 tab PO Q4H PRN (Reason: pain) 3 Days Qty: 20 0RF Rx Instructions: Call office if you need more. Continued rosuvastatin 5 mg tablet 5 mg PO QHS famotidine 40 mg tablet 40 mg PO QHS loratadine 10 mg tablet 10 mg PO DAILY PRN (Reason: allergy symptoms) carboxymethylcellulose sodium [Refresh Tears] 0.5 % drops 1 drp ophthalmic (eye) DAILY multivitamin Tablet 1 tab PO DAILY estradiol 0.01 % (0.1 mg/gram) cream 1 appful vaginal 2XW Rx Instructions: for 14 days amlodipine 5 mg tablet 5 mg PO QDAY Qty: 90 3RF Held naproxen sodium [Aleve] 220 mg tablet 220 mg PO BID PRN (Reason: pain) Hold Instructions: May resume in 72 hours acetaminophen 500 mg capsule 500 mg PO Q6H PRN (Reason: pain) Hold Instructions: Caution with concomitant use of [place] as it also contains Tylenol. Do not exceed rater than 4000 mg of Tylenol per day or 1000 mg every 6 hours Referrals / Follow Up: Chichi Page MD [Primary Care Provider] - Disposition Disposition (needs filled in before D/C Order can be placed): Home, Self Care
--- NOTE | 2025-02-09 12:44 | PCM.POST.ANE ---
Anesthesia: Postop Eval I Current Vital Signs Temperature: 97.0 F Pulse Rate: 71 Blood Pressure: 126/65 Respiratory Rate: 16 Pulse Ox: 99 Assessment Airway patent: Yes Spontaneous unlabored respirations: Yes nausea: No Vomiting: No Anesthesia Complication: No Fluid Hydration Crystalloid volume administer (ml): 1,100 Total IV fluid infused: 1,100 Progress Note Anesthesia document: Postop Eval 1 completed: Yes
--- NOTE | 2025-02-09 13:56 | POSTOPAN2_ITS ---
Anesthesia Postop Eval I Sum Postop Eval Completion status Anesthesia document: Postop Eval 1 completed: Yes Anesthesia Postop Eval I Summary Anesthesia Postop Eval I Summary: Anesthesia Postop Eval I: Assessment Summary Airway patent Yes 02/09/25 12:45 STRIKE OFF MACHINE OPERATOR.[email or web address] Spontaneous unlabored Yes 02/09/25 12:45 STRIKE OFF MACHINE OPERATOR.JGEN respirations Mental status nausea No 02/09/25 12:45 STRIKE OFF MACHINE OPERATOR.JGEN Vomiting Anesthesia Postop Eval I: Fluid Summary Crystalloid volume administer 1,100 02/09/25 12:45 STRIKE OFF MACHINE OPERATOR.JGEN (ml) Colloids volume administered ( ml) Blood Product volume administered (ml) Total IV fluid infused 1,100 02/09/25 12:45 STRIKE OFF MACHINE OPERATOR.JGEN Anesthesia Postop Eval I: Summary Notes Anesthesia Complication No 02/09/25 12:45 STRIKE OFF MACHINE OPERATOR.JGEN Anesthesia Complication Comment: Post-operative progress note Anesthesia: Postop Eval II Evaluation Mental status: Awake Pain Level: 0 nausea: No Vomiting: No
--- NOTE | 2025-02-09 13:56 | PCM.POSTANE2 ---
Anesthesia Postop Eval I Sum Postop Eval Completion status Anesthesia document: Postop Eval 1 completed: Yes Anesthesia Postop Eval I Summary Anesthesia Postop Eval I Summary: Anesthesia Postop Eval I: Assessment Summary Airway patent Yes 02/09/25 12:45 BANDOLEER STRAIGHTENER [email or web address] Spontaneous unlabored Yes 02/09/25 12:45 BANDOLEER STRAIGHTENER STAMPER.JGEN respirations Mental status nausea No 02/09/25 12:45 BANDOLEER STRAIGHTENER STAMPER.JGEN Vomiting Anesthesia Postop Eval I: Fluid Summary Crystalloid volume administer 1,100 02/09/25 12:45 BANDOLEER STRAIGHTENER STAMPER.JGEN (ml) Colloids volume administered ( ml) Blood Product volume administered (ml) Total IV fluid infused 1,100 02/09/25 12:45 BANDOLEER STRAIGHTENER STAMPER.JGEN Anesthesia Postop Eval I: Summary Notes Anesthesia Complication No 02/09/25 12:45 BANDOLEER STRAIGHTENER STAMPER.JGEN Anesthesia Complication Comment: Post-operative progress note Anesthesia: Postop Eval II Evaluation Mental status: Awake Pain Level: 0 nausea: No Vomiting: No
== END 2025-02-09 14:46 | disposition home or self-care (01) ==
LOC: SDC 09:28 → AC 09:32
PROVIDERS: Anesthesiology; PCP Internal Medicine; Referring Provider Orthopaedic Surgery; Visit Provider Orthopaedic Surgery
PROC: (CPT 25609; principal; 2025-02-09 10:45)
DX: S52.572A Other intraarticular fracture of lower end of left radius, initial encounter for closed fracture (principal); N18.31 Chronic kidney disease, stage 3a; W01.0XXA Fall on same level from slipping, tripping and stumbling without subsequent striking against object, initial encounter; I12.9 Hypertensive chronic kidney disease with stage 1 through stage 4 chronic kidney disease, or unspecified chronic kidney disease; E78.00 Pure hypercholesterolemia, unspecified; M81.0 Age-related osteoporosis without current pathological fracture; K21.9 Gastro-esophageal reflux disease without esophagitis; Z86.2 Personal history of diseases of the blood and blood-forming organs and certain disorders involving the immune mechanism; Z79.899 Other long term (current) drug therapy; Z87.891 Personal history of nicotine dependence
CPT/HCPCS: 25609; 01830; 64417; 73100; 76000; 85610; 85730; C1713; J2405

== ENCOUNTER 2025-04-30 14:30 | Outpatient (RCR) | payer MEDICARE, BC, SELFPAY ==
--- NOTE | 2025-02-26 19:13 | HP.OTEVAL ---
Patient's Visit Information Visit Information Visit Information: BORA DIXON is a 74 year old F, referred to Occupational Therapy by Dr. Ge Mejia DO, with a diagnosis of left distal radius fx. Date of Evaluation: 02/26/25 Occupational Therapist: Jessica Plascencia, KIMBERLEER/Owen, CHT Subjective Subjective: This 74-year-old female was seen for OT eval with dx of distal radius fx left - DOI was February 03 due to fall. pt underwent sx. on 02/09/25 pt is left-handed pt arrives without brace on - states she has not been using her brace much- feels she is doing better with the exercises Dr. Mejia gave her. 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 pt currently limited with ADls and IADLS due limited wrist ROM and weakness. Pain left wrist: Current Pain Intensity: 3 Pain Intensity Range: 2 and 5 ROM Forearm: right/left sup/pronation WNL Wrist: right 65/60 left 30/35 Strength Bladder Changer: right 40 left NT Lateral Pinch: right 14# left NT Tripod Pinch: right 12# left NT Strength Comments: will test left at later date (about 6 weeks) Edema Wrist: right 15cm left 17.5cm Sensation Sensation Comments: at times tingling but nothing for long Quick DASH-Disab of Arm,Shoulder& Hand Quick DASH Score: 65.0000 Goals Goal:Daily scar massage when approriate: Yes Goal:ROM equal to unaffected hand: Yes Goal:Bladder Changer/Pinch strength at least 75% of unaffected hand: Yes Comment: initiate week 6 s/p unless otherwise specified by Goal:No pain with affected hand use: Yes Goal:Full use of affected hand in daily activities including work: Yes Rehabilitation General Assessment: pt arrives 2 weeks and 4 days s/p from ORIF of left distal radius. Pt demo with limited left wrist ROM and weakness limiting pts IND with ADLs and IADLs. pt would benefit from skilled OT services 1-2x week for 4-6 weeks. Today therapist ed. pt on AROM and AAROM of wrist flexion/ ext, and forearm sup/pronation - edema control and scar massage. pt was given handout and demo understanding and agree to POC. Rehabilitation Potential: Good Anticipated Interventions Anticipated Interventions: A/AAROM/PROM, Strengthening, Edema Control, Scar Care, Triggerpoint Release, Modalities, Orthoses, Joint Protection/Energy Conservation, Ergonomic Education, Fine Motor Coord/Zaid, Education re assistive Equipment, Education re Diagnosis and Home Program Visit Plan Frequency: 1-2x /Week Duration: 4-6 Weeks TEXT: Thank you for the opportunity to evaluate your patient. For Medicare and Medicare HMO plans, please review the plan of care and approve it. It will need to be FAXED BACK to us at [phone] for Medicare purposes. Please let me know if there are questions or concerns regarding this plan of care. Physician Signature: Date:
--- NOTE | 2025-02-26 19:13 | HP.OTEVAL ---
Patient's Visit Information Visit Information Visit Information: BORA DIXON is a 74 year old F, referred to Occupational Therapy by Dr. Ge Mejia DO, with a diagnosis of left distal radius fx. Date of Evaluation: 02/26/25 Occupational Therapist: Jessica Plascencia, KIMBERLEER/Owen, CHT Subjective Subjective: This 74-year-old female was seen for OT eval with dx of distal radius fx left - DOI was February 03 due to fall. pt underwent sx. on 02/09/25 pt is left-handed pt arrives without brace on - states she has not been using her brace much- feels she is doing better with the exercises Dr. Mejia gave her. 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 pt currently limited with ADls and IADLS due limited wrist ROM and weakness. Pain left wrist: Current Pain Intensity: 3 Pain Intensity Range: 2 and 5 ROM Forearm: right/left sup/pronation WNL Wrist: right 65/60 left 30/35 Strength Outpatient Admitting Clerk: right 40 left NT Lateral Pinch: right 14# left NT Tripod Pinch: right 12# left NT Strength Comments: will test left at later date (about 6 weeks) Edema Wrist: right 15cm left 17.5cm Sensation Sensation Comments: at times tingling but nothing for long Quick DASH-Disab of Arm,Shoulder& Hand Quick DASH Score: 65.0000 Goals Goal:Daily scar massage when approriate: Yes Goal:ROM equal to unaffected hand: Yes Goal:Outpatient Admitting Clerk/Pinch strength at least 75% of unaffected hand: Yes Comment: initiate week 6 s/p unless otherwise specified by Goal:No pain with affected hand use: Yes Goal:Full use of affected hand in daily activities including work: Yes Rehabilitation General Assessment: pt arrives 2 weeks and 4 days s/p from ORIF of left distal radius. Pt demo with limited left wrist ROM and weakness limiting pts IND with ADLs and IADLs. pt would benefit from skilled OT services 1-2x week for 4-6 weeks. Today therapist ed. pt on AROM and AAROM of wrist flexion/ ext, and forearm sup/pronation - edema control and scar massage. pt was given handout and demo understanding and agree to POC. Rehabilitation Potential: Good Anticipated Interventions Anticipated Interventions: A/AAROM/PROM, Strengthening, Edema Control, Scar Care, Triggerpoint Release, Modalities, Orthoses, Joint Protection/Energy Conservation, Ergonomic Education, Fine Motor Coord/Zaid, Education re assistive Equipment, Education re Diagnosis and Home Program Visit Plan Frequency: 1-2x /Week Duration: 4-6 Weeks TEXT: Thank you for the opportunity to evaluate your patient. For Medicare and Medicare HMO plans, please review the plan of care and approve it. It will need to be FAXED BACK to us at [phone] for Medicare purposes. Please let me know if there are questions or concerns regarding this plan of care. Physician Signature: Date:
--- NOTE | 2025-03-19 15:06 | HP.OTREVAL ---
Re-Evaluation Intro: Dr. Ge Mejia, DO, It has been my pleasure to treat BORA DIXON over the last 4 visits for left distal radius fx. Please see the progress note below for an update on the occupational therapy plan of care! Subjective Subjective: pt arrives 4 weeks and 3 days s/p from ORIF of left. pt states she is doing more reaching with her left hand- Objective Objective/Function: left wrist 50/45 this is increase form 30/35 pt states she is stretching daily and holding stretches longer. left apartment maintenance supervisor strength 15# pt is progressing with her ROM pt would benefit from further skilled therapy to continue to transition pt from AROM to strengthening once cleared by dr. Plan Plan Frequency: 1-2x /Week Duration: 4-6 Weeks Plan: cont ROM scar mtg light use will return to Dr to get cleared for PRE Goals Goals Patient Goals: Regain Mobility, Use Hand/Wrist/Arm Normally Again, Be More Independent in ADLS and Resume Former Household Responsibilities (Cooking,Cleaning,Yard, etc.) Goal:Daily scar massage when approriate: Yes Goal:ROM equal to unaffected hand: Yes Goal:[employer] Team Member/Pinch strength at least 75% of unaffected hand: Yes Goal:No pain with affected hand use: Yes Goal:Full use of affected hand in daily activities including work: Yes Anticipated Interventions Anticipated Interventions Anticipated Interventions: A/AAROM/PROM, Strengthening, Edema Control, Scar Care, Triggerpoint Release, Modalities, Orthoses, Joint Protection/Energy Conservation, Ergonomic Education, Fine Motor Coord/Zaid, Education re assistive Equipment, Education re Diagnosis and Home Program Re-Evaluation Ending Re-evaluation ending: Please do not hesitate to contact me at [phone] by phone or if you have questions or concerns regarding this new plan of care! Sincerely, Jessica Plascencia, OTR/L, CHT
--- NOTE | 2025-03-19 15:06 | HP.OTREVAL ---
Re-Evaluation Intro: Dr. Ge Mejia, DO, It has been my pleasure to treat BORA DIXON over the last 4 visits for left distal radius fx. Please see the progress note below for an update on the occupational therapy plan of care! Subjective Subjective: pt arrives 4 weeks and 3 days s/p from ORIF of left. pt states she is doing more reaching with her left hand- Objective Objective/Function: left wrist 50/45 this is increase form 30/35 pt states she is stretching daily and holding stretches longer. left store planner strength 15# pt is progressing with her ROM pt would benefit from further skilled therapy to continue to transition pt from AROM to strengthening once cleared by dr. Plan Plan Frequency: 1-2x /Week Duration: 4-6 Weeks Plan: cont ROM scar mtg light use will return to Dr to get cleared for PRE Goals Goals Patient Goals: Regain Mobility, Use Hand/Wrist/Arm Normally Again, Be More Independent in ADLS and Resume Former Household Responsibilities (Cooking,Cleaning,Yard, etc.) Goal:Daily scar massage when approriate: Yes Goal:ROM equal to unaffected hand: Yes Goal:Oil Derrick Operator/Pinch strength at least 75% of unaffected hand: Yes Goal:No pain with affected hand use: Yes Goal:Full use of affected hand in daily activities including work: Yes Anticipated Interventions Anticipated Interventions Anticipated Interventions: A/AAROM/PROM, Strengthening, Edema Control, Scar Care, Triggerpoint Release, Modalities, Orthoses, Joint Protection/Energy Conservation, Ergonomic Education, Fine Motor Coord/Zaid, Education re assistive Equipment, Education re Diagnosis and Home Program Re-Evaluation Ending Re-evaluation ending: Please do not hesitate to contact me at [phone] by phone or if you have questions or concerns regarding this new plan of care! Sincerely, Jessica Plascencia, OTR/L, CHT
--- NOTE | 2025-04-30 15:02 | HP.OTDCSUM ---
Discharge Summary D/C Summary: It has been my pleasure to treat BORA DIXON under orders from Dr. Ge Mejia DO, for the diagnosis of left distal radius fx for a total of 10 visit(s). Please see the following information for a summary of their discharge status. Overall Improvement % Improvement: 60 Objective Objective/Function: left topper press operator automatic strength 25# right 50# left lateral pinch 7# a increase from 4# left tripod pinch 4# increased from 2# left forearm supination/pronation WNL left wrist 55*/55* pt has made good gains with her ROM and strength- pt has returned to a IND level of ADLs and IADLs- ( pt continues to struggle with playing her musical instruments but states she will cont. with her ex. and playing. pt has made adaptions for her current limitation of left topper press operator automatic strength and wrist ROM compared to unaffected side. pt has been give a HEP and pt agrees to cont. with that. Goals Patient Goals: Regain Mobility, Use Hand/Wrist/Arm Normally Again, Be More Independent in ADLS and Resume Former Household Responsibilities (Cooking,Cleaning,Yard, etc.) Goal:Daily scar massage when approriate: Yes Goal Progress: Goal Met Goal:ROM equal to unaffected hand: Yes Goal Progress: Progressing Goal:Pet Care Assistant/Pinch strength at least 75% of unaffected hand: Yes Goal Progress: Progressing Goal:No pain with affected hand use: Yes Goal Progress: Goal Met Goal:Full use of affected hand in daily activities including work: Yes Goal Progress: Goal Met Plan Plan: D/c with HEP D/C Information Discharge Comments: pt has made progress with ROM and strength towards her daily tasks. pt has met goals and will now be d/c at this time with HEP. d/c sentence: If there are questions or concerns regarding this patient's occupational therapy, please fell free to call me at [phone]. Thank you for the referral of this patient. Sincerely, Jessica Plascencia, OTR/L, CHT
--- NOTE | 2025-04-30 15:02 | HP.OTDCSUM ---
Discharge Summary D/C Summary: It has been my pleasure to treat BORA DIXON under orders from Dr. Ge Mejia DO, for the diagnosis of left distal radius fx for a total of 10 visit(s). Please see the following information for a summary of their discharge status. Overall Improvement % Improvement: 60 Objective Objective/Function: left travelers' aid worker strength 25# right 50# left lateral pinch 7# a increase from 4# left tripod pinch 4# increased from 2# left forearm supination/pronation WNL left wrist 55*/55* pt has made good gains with her ROM and strength- pt has returned to a IND level of ADLs and IADLs- ( pt continues to struggle with playing her musical instruments but states she will cont. with her ex. and playing. pt has made adaptions for her current limitation of left travelers' aid worker strength and wrist ROM compared to unaffected side. pt has been give a HEP and pt agrees to cont. with that. Goals Patient Goals: Regain Mobility, Use Hand/Wrist/Arm Normally Again, Be More Independent in ADLS and Resume Former Household Responsibilities (Cooking,Cleaning,Yard, etc.) Goal:Daily scar massage when approriate: Yes Goal Progress: Goal Met Goal:ROM equal to unaffected hand: Yes Goal Progress: Progressing Goal:Warrant Clerk/Pinch strength at least 75% of unaffected hand: Yes Goal Progress: Progressing Goal:No pain with affected hand use: Yes Goal Progress: Goal Met Goal:Full use of affected hand in daily activities including work: Yes Goal Progress: Goal Met Plan Plan: D/c with HEP D/C Information Discharge Comments: pt has made progress with ROM and strength towards her daily tasks. pt has met goals and will now be d/c at this time with HEP. d/c sentence: If there are questions or concerns regarding this patient's occupational therapy, please fell free to call me at [phone]. Thank you for the referral of this patient. Sincerely, Jessica Plascencia, OTR/L, CHT
== END 2025-04-30 15:51 | disposition home or self-care (01) ==
LOC: OT 14:30
PROVIDERS: PCP Internal Medicine; Referring Provider Orthopaedic Surgery; Visit Provider Orthopaedic Surgery
DX: S52.562D Barton's fracture of left radius, subsequent encounter for closed fracture with routine healing (principal)
CPT/HCPCS: 97110; 97140; 97166; 97530

== ENCOUNTER 2025-06-11 09:17 | Day surgery (SDC) | payer MEDICARE, BC, SELFPAY ==
--- NOTE | 2025-06-06 14:26 | PAT.ANESEVAL ---
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 When Was Last Pacemaker Check QUESTION #4 FULL TEXT: You/Your Family Experience fever (hyperthermia) with Anesthesia Last Oral Intake Last Oral intake: Last Oral Intake NPO since Meds taken in AM with sips of water? 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 developer Female Yes 06/06/25 09:05 HX of Motion Sickness Yes 06/06/25 09:05 HX of N/V After Surgery No 06/06/25 09:05 Non-Smoker Yes 06/06/25 09:05 Duration of Surgery greater No 06/06/25 09:05 than 60 minutes Number of Risk Factors 3 06/06/25 09:05 PONV Score Moderate Risk 06/06/25 09:05 Height & Weight Height & Weight: Anesthesia: Height & Weight Height 5 ft 3 in 02/09/25 10:12 Respiratory Assessment Respiratory Assessment - senior sql server developer: Respiratory Tract Infection Hx - senior sql server developer Hx Respiratory Tract Infection No 06/06/25 09:05 STOP Sleep Apnea STOP Sleep Apnea - senior sql server developer: STOP Sleep Apnea - senior sql server developer Hx Hypertension Yes: ON MEDS 06/06/25 09:05 Hx Sleep Apnea No 06/06/25 09:05 CPAP BIPAP Do you snore loudly (louder No 06/06/25 09:05 than talking or can be heard Do you often feel tired/ No 06/06/25 09:05 fatigued/ sleepy during daytime? Has anyone observed you stop No 06/06/25 09:05 breathing during sleep? STOP Results Negative 06/06/25 09:05 QUESTION #5 FULL TEXT : Do you snore loudly (louder than talking or can be heard through closed doors)? 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 Specify any problems Hx of Preganancy in last 3 No 06/06/25 09:05 Months Nurse Filling Out Transfusion JZOLLINGE 06/06/25 09:05 & Questions: Date: 06/06/25 06/06/25 09:05 Time: 09:07 06/06/25 09:05 Patient unable to answer at this time (ie. confused, unrespo /Reproduction History /Reproductive History - senior sql server developer: /Reproductive Hx- senior sql server developer Hx Now No 06/06/25 09:05 Gestational Age (in weeks): EDC: Hx Hx Para Hx Section SAB No 06/06/25 09:05 [facility] Medical History (Updated 06/06/25 @ 09:05 by Kylee Bills) Dietary restriction Loss of hearing Wears glasses Alcohol use Post-menopausal Abrasion Arthritis Anemia Excessive bleeding Back pain Migraine headache Injury of head and neck History of hiatal hernia Ulcerative proctitis Gastric reflux Non-smoker Shortness of breath on exertion Leg cramps History of pain when walking Cardiology follow-up encounter History of echocardiogram History of stress test Stage 3a chronic kidney disease (CKD) Mixed hyperlipidemia HTN (hypertension) Internal hemorrhoids without mention of complication Osteoporosis Osteopenia Home Medications ?Medication ?Instructions ?Recorded ?Last Taken ?Type acetaminophen 500 mg capsule 500 mg PO Q6H PRN pain 04/26/24 Unknown History carboxymethylcellulose sodium 0.5 1 drp ophthalmic (eye) DAILY 04/26/24 Unknown History % eye drops (Refresh Tears) famotidine 40 mg tablet 40 mg PO QHS 04/26/24 Unknown History loratadine 10 mg tablet 10 mg PO DAILY PRN allergy symptoms 04/26/24 Unknown History multivitamin 1 tab PO DAILY 04/26/24 Unknown History naproxen sodium 220 mg tablet 220 mg PO BID PRN pain 04/26/24 Unknown History (Aleve) rosuvastatin 5 mg tablet 5 mg PO QHS 04/26/24 Unknown History estradiol 0.01% (0.1 mg/gram) 1 appful vaginal 2XW 05/16/24 Unknown History vaginal cream amlodipine 5 mg tablet 5 mg PO QDAY #90 tabs 07/31/24 02/09/25 07:00 Rx Allergy/AdvReac Type Severity Reaction Status Date / Time alendronate sodium (From AdvReac Intermediate GI upset Verified 06/06/25 08:55 Fosamax) ibandronate sodium (From AdvReac Intermediate migraine Verified 06/06/25 08:55 Boniva) risedronate sodium (From AdvReac Intermediate bones Verified 06/06/25 08:55 Actonel) aching Family History Mother Thyroid disorder Osteoporosis Aortic stenosis Father Hypertension Osteoporosis Sister Thyroid disorder Brother Thyroid disorder CAD (coronary artery disease), Onset Age: 50 stents Surgical History Hx of colonoscopy History of wisdom tooth extraction Hx of elbow surgery (~2001) Hx of knee surgery (~2001) History of facial surgery Hx of hand surgery History of tonsillectomy and adenoidectomy Social History Smoking Status: Never smoker how long ago did patient quit smokin alcohol intake: current alcohol intake frequency: a few times a month substance use type: does not use caffeine: Yes Type: tea Number of servings: 4 Audit: Pertinent Findings Pertinent Findings EKG Perinent findings: Sinus bradycardia otherwise within normal limits. Echo (EF%) pertinent findings: 06/05/2024. Normal size function EF 65% pulmonary artery pressures 30 Consult pertinent findings: Cardiology 07/31/2024. Shortness of breath. Resolved. CT angio negative for vascular disease. Calcium score 0. Abnormal nuclear cardiac imaging test. Chronic. False positive stress test. Hypertension. Chronic. Stable. Recommendation Anesthesia Recommendation Anesthesia recommendation: OPTIMIZED for anesthesia
--- NOTE | 2025-06-06 14:26 | PAT.ANESEVAL ---
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 When Was Last Pacemaker Check QUESTION #4 FULL TEXT: You/Your Family Experience fever (hyperthermia) with Anesthesia Last Oral Intake Last Oral intake: Last Oral Intake NPO since Meds taken in AM with sips of water? 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 - horse shoer: PONV - horse shoer Female Yes 06/06/25 09:05 HX of Motion Sickness Yes 06/06/25 09:05 HX of N/V After Surgery No 06/06/25 09:05 Non-Smoker Yes 06/06/25 09:05 Duration of Surgery greater No 06/06/25 09:05 than 60 minutes Number of Risk Factors 3 06/06/25 09:05 PONV Score Moderate Risk 06/06/25 09:05 Height & Weight Height & Weight: Anesthesia: Height & Weight Height 5 ft 3 in 02/09/25 10:12 Respiratory Assessment Respiratory Assessment - horse shoer: Respiratory Tract Infection Hx - horse shoer Hx Respiratory Tract Infection No 06/06/25 09:05 STOP Sleep Apnea STOP Sleep Apnea - horse shoer: STOP Sleep Apnea - horse shoer Hx Hypertension Yes: ON MEDS 06/06/25 09:05 Hx Sleep Apnea No 06/06/25 09:05 CPAP BIPAP Do you snore loudly (louder No 06/06/25 09:05 than talking or can be heard Do you often feel tired/ No 06/06/25 09:05 fatigued/ sleepy during daytime? Has anyone observed you stop No 06/06/25 09:05 breathing during sleep? STOP Results Negative 06/06/25 09:05 QUESTION #5 FULL TEXT : Do you snore loudly (louder than talking or can be heard through closed doors)? 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 Specify any problems Hx of Preganancy in last 3 No 06/06/25 09:05 Months Nurse Filling Out Transfusion JZOLLINGE 06/06/25 09:05 & Questions: Date: 06/06/25 06/06/25 09:05 Time: 09:07 06/06/25 09:05 Patient unable to answer at this time (ie. confused, unrespo /Reproduction History /Reproductive History - horse shoer: /Reproductive Hx- horse shoer Hx Now No 06/06/25 09:05 Gestational Age (in weeks): EDC: Hx Hx Para Hx Section SAB No 06/06/25 09:05 [facility] Medical History (Updated 06/06/25 @ 09:05 by Kylee Bills) Dietary restriction Loss of hearing Wears glasses Alcohol use Post-menopausal Abrasion Arthritis Anemia Excessive bleeding Back pain Migraine headache Injury of head and neck History of hiatal hernia Ulcerative proctitis Gastric reflux Non-smoker Shortness of breath on exertion Leg cramps History of pain when walking Cardiology follow-up encounter History of echocardiogram History of stress test Stage 3a chronic kidney disease (CKD) Mixed hyperlipidemia HTN (hypertension) Internal hemorrhoids without mention of complication Osteoporosis Osteopenia Home Medications ?Medication ?Instructions ?Recorded ?Last Taken ?Type acetaminophen 500 mg capsule 500 mg PO Q6H PRN pain 04/26/24 Unknown History carboxymethylcellulose sodium 0.5 1 drp ophthalmic (eye) DAILY 04/26/24 Unknown History % eye drops (Refresh Tears) famotidine 40 mg tablet 40 mg PO QHS 04/26/24 Unknown History loratadine 10 mg tablet 10 mg PO DAILY PRN allergy symptoms 04/26/24 Unknown History multivitamin 1 tab PO DAILY 04/26/24 Unknown History naproxen sodium 220 mg tablet 220 mg PO BID PRN pain 04/26/24 Unknown History (Aleve) rosuvastatin 5 mg tablet 5 mg PO QHS 04/26/24 Unknown History estradiol 0.01% (0.1 mg/gram) 1 appful vaginal 2XW 05/16/24 Unknown History vaginal cream amlodipine 5 mg tablet 5 mg PO QDAY #90 tabs 07/31/24 02/09/25 07:00 Rx Allergy/AdvReac Type Severity Reaction Status Date / Time alendronate sodium (From AdvReac Intermediate GI upset Verified 06/06/25 08:55 Fosamax) ibandronate sodium (From AdvReac Intermediate migraine Verified 06/06/25 08:55 Boniva) risedronate sodium (From AdvReac Intermediate bones Verified 06/06/25 08:55 Actonel) aching Family History Mother Thyroid disorder Osteoporosis Aortic stenosis Father Hypertension Osteoporosis Sister Thyroid disorder Brother Thyroid disorder CAD (coronary artery disease), Onset Age: 50 stents Surgical History Hx of colonoscopy History of wisdom tooth extraction Hx of elbow surgery (~2001) Hx of knee surgery (~2001) History of facial surgery Hx of hand surgery History of tonsillectomy and adenoidectomy Social History Smoking Status: Never smoker how long ago did patient quit smokin alcohol intake: current alcohol intake frequency: a few times a month substance use type: does not use caffeine: Yes Type: tea Number of servings: 4 Audit: Pertinent Findings Pertinent Findings EKG Perinent findings: Sinus bradycardia otherwise within normal limits. Echo (EF%) pertinent findings: 06/05/2024. Normal size function EF 65% pulmonary artery pressures 30 Consult pertinent findings: Cardiology 07/31/2024. Shortness of breath. Resolved. CT angio negative for vascular disease. Calcium score 0. Abnormal nuclear cardiac imaging test. Chronic. False positive stress test. Hypertension. Chronic. Stable. Recommendation Anesthesia Recommendation Anesthesia recommendation: OPTIMIZED for anesthesia
[2025-06-11] VITALS (8 sets, daily range): BP systolic 101–133; BP diastolic 45–64; PULSE 60–65; RESP 16; TEMP 36.1–36.7; O2SAT 95–99; BMI 28.5
--- NOTE | 2025-06-11 09:37 | HP.PCM_ITS ---
[facility] - General General Date of Admission: 06/11/25 Date of Service: 06/11/25 Chief Complaint: Screening colonoscopy HPI Narrative BORA DIXON, is a 75 F who presents for a screening colonoscopy following an abnormal Cologuard result from over a year ago. Prior GI had cardiac concerns and recommended the at-home test and then still refused to perform a colonoscopy. Recent coronary angiography CT and cardiology review did not note any atherosclerotic coronary vascular disease. She denies difficulty chewing and swallowing, acid reflux, abdominal bloating, cramping, excessive belching and flatulence, hematochezia and melena. Reports internal hemorrhoids without bleeding, noting increased rectal pressure if sitting is prolonged. Reports frequent throat clearing from sinus drainage and occasional cough from recent respiratory infection. She states that she takes famotidine for GERD per PCP, along with dietary restrictions, and is controlled. Prior colonoscopies have demonstrated ulcerative proctitis (healed), diverticulosis, and internal hemorrhoids; last one negative in 2013. Recent labs reviewed from PCP on 11.28.24: AST 44, ALT 52. She denies family history of colon cancer. [facility] Medical History Dietary restriction Loss of hearing Wears glasses Alcohol use Post-menopausal Abrasion Arthritis Anemia Excessive bleeding Back pain Migraine headache Injury of head and neck History of hiatal hernia Ulcerative proctitis Gastric reflux Non-smoker Shortness of breath on exertion Leg cramps History of pain when walking Cardiology follow-up encounter History of echocardiogram History of stress test Stage 3a chronic kidney disease (CKD) Mixed hyperlipidemia HTN (hypertension) Internal hemorrhoids without mention of complication Osteoporosis Osteopenia Home Medications ?Medication ?Instructions ?Recorded ?Last Taken ?Type acetaminophen 500 mg capsule 500 mg PO Q6H PRN pain Unknown History carboxymethylcellulose sodium 0.5 1 drp ophthalmic (ey e) DAILY 04/26/24 Unknown History % eye drops (Refresh Tears) famotidine 40 mg tablet 40 mg PO QHS 04/26/24 Unknow n History loratadine 10 mg tablet 10 mg PO DAILY PRN allergy s ymptoms 04/26/24 Unknown History multivitamin 1 tab PO DAILY 04/26/24 Unkn own History naproxen sodium 220 mg tablet 220 mg PO BID PRN pain 0 04/26/24 Unknown History (Aleve) rosuvastatin 5 mg tablet 5 mg PO QHS 04/26/24 Unknown History estradiol 0.01% (0.1 mg/gram) 1 appful vaginal 2XW Unknown History vaginal cream amlodipine 5 mg tablet 5 mg PO QDAY #90 tabs 02/09/25 07:00 Rx Allergy/AdvReac Type Severity Reaction Status Date / Time alendronate sodium (From AdvReac Intermediate GI upset Verified 06/11/25 09:37 Fosamax) ibandronate sodium (From AdvReac Intermediate migraine Verified 06/11/25 09:37 Boniva) risedronate sodium (From AdvReac Intermediate bones Verified 06/11/25 09:37 Actonel) aching Family History Mother Thyroid disorder Osteoporosis Aortic stenosis Father Hypertension Osteoporosis Sister Thyroid disorder Brother Thyroid disorder CAD (coronary artery disease), Onset Age: 50 stents Surgical History Hx of colonoscopy History of wisdom tooth extraction Hx of elbow surgery (~2001) Hx of knee surgery (~2001) History of facial surgery Hx of hand surgery History of tonsillectomy and adenoidectomy Social History Smoking Status: Never smoker how long ago did patient quit smokin alcohol intake: current alcohol intake frequency: a few times a month substance use type: does not use caffeine: Yes Type: tea Number of servings: 4 ROS Constitutional Constitutional: Denies fatigue, fever(s), poor appetite, weight gain or weight loss Gastrointestinal Gastrointestinal: Denies belching, bloating, change in bowel habits, change in stool character, chewing difficulty, coffee ground emesis, constipation, cramping, diarrhea, dyspepsia, dysphagia, early satiety, excessive flatus, fecal incontinence, heartburn, hematemesis, hematochezia, hemorrhoids, loose stools, melena, nausea, odynophagia, rectal bleeding, tenesmus, vomiting or weight changes Physical Exam Const alert, oriented x3, no apparent distress and healthy appearing General Appearance: cooperative GI normal to inspection, nondistended, normoactive bowel sounds, soft to palpation, non-tender and non-distended Percussion: normal to percussion Rectal Exam: deferred Assessment & Plan Assessment/Plan (1) Screen for colon cancer: PLAN: Plan BORA DIXON, is a 74 F who presents to the office today for establishment with [facility] for a screening colonoscopy following an abnormal Cologuard result from over a year ago. She questioned necessity of any testing beyond the age of 68 years; explained that all testing should be voluntary and strongly depends on course of action if anything is discovered (i.e. how aggressive do you want treatment to be?). Colonoscopy is still considered screening as she does not have signs/symptoms or direct family history of colon cancer. Discussed care plan with her: * schedule screening colonoscopy * consider EGD to investigate hiatal hernia, reflux esophagitis * consider vonoprazan for GERD control, if cough/throat-clearing does not clear * consider repeat liver panel in 6months, if still elevated consider limited abdominal US w/elastography
[2025-06-11] MEDS: Lactated Ringers 1,000 ML 15 ML IV (09:44)
--- NOTE | 2025-06-11 09:55 | PRE.ANES_ITS ---
ASA Classification* ASA Classification ASA Classification: 3 Assessment & Plan Anesthesia* Anesthesia Assessment Anesthesia Assessment: Discussed sedation and/or anesthesia options, risks, benefits, and alternatives with patient/parents/legal guardian/POA. Questions invited. The patient/parents/legal guardian/POA seems to understand and agrees to proceed with anesthesia plan. Reviewed the physical assessment, medical history, allergy history and patient home medications list prior to surgery/procedure/anesthetic and documented any changes. Performed airway and anesthesia risk assessments. 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 When Was Last Pacemaker Check QUESTION #4 FULL TEXT: You/Your Family Experience fever (hyperthermia) with Anesthesia Last Oral Intake Last Oral intake: Last Oral Intake NPO since 06:30 06/11/25 09:38 Meds taken in AM with sips of No 06/11/25 09:38 water? 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 - housekeeping aid: PONV - housekeeping aid Female Yes 06/06/25 09:05 HX of Motion Sickness Yes 06/06/25 09:05 HX of N/V After Surgery No 06/06/25 09:05 Non-Smoker Yes 06/06/25 09:05 Duration of Surgery greater No 06/06/25 09:05 than 60 minutes Number of Risk Factors 3 06/06/25 09:05 PONV Score Moderate Risk 06/06/25 09:05 Height & Weight Height & Weight: Anesthesia: Height & Weight Height 5 ft 3 in 06/11/25 09:38 Weight: 73 kg 06/11/25 09:38 Body Mass Index (BMI) 28.5 06/11/25 09:38 Respiratory Assessment Respiratory Assessment - housekeeping aid: Respiratory Tract Infection Hx - housekeeping aid Hx Respiratory Tract Infection No 06/06/25 09:05 STOP Sleep Apnea STOP Sleep Apnea - housekeeping aid: STOP Sleep Apnea - housekeeping aid Hx Hypertension Yes: ON MEDS 06/06/25 09:05 Hx Sleep Apnea No 06/06/25 09:05 CPAP BIPAP Do you snore loudly (louder No 06/06/25 09:05 than talking or can be heard Do you often feel tired/ No 06/06/25 09:05 fatigued/ sleepy during daytime? Has anyone observed you stop No 06/06/25 09:05 breathing during sleep? STOP Results Negative 06/06/25 09:05 QUESTION #5 FULL TEXT : Do you snore loudly (louder than talking or can be heard through closed doors)? 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 Specify any problems Hx of Preganancy in last 3 No 06/06/25 09:05 Months Nurse Filling Out Transfusion JZOLLINGE 06/06/25 09:05 & Questions: Date: 06/06/25 06/06/25 09:05 Time: 09:07 06/06/25 09:05 Patient unable to answer at this time (ie. confused, unrespo /Reproduction History /Reproductive History - housekeeping aid: /Reproductive Hx- housekeeping aid Hx Now No 06/06/25 09:05 Gestational Age (in weeks): EDC: Hx Hx Para Hx Section SAB No 06/06/25 09:05 Active Medications Active Medications: Current Medications Generic Name Dose Route Start Last Admin Trade Name Freq PRN Reason Stop Dose Admin Lactated Ringer's 1,000 mls @ 15 mls/hr 06/11/25 09:30 06/11/25 09:44 IV 15 mls/hr .Q48H STEVO Administration PFSH Medical History Dietary restriction Loss of hearing Wears glasses Alcohol use Post-menopausal Abrasion Arthritis Anemia Excessive bleeding Back pain Migraine headache Injury of head and neck History of hiatal hernia Ulcerative proctitis Gastric reflux Non-smoker Shortness of breath on exertion Leg cramps History of pain when walking Cardiology follow-up encounter History of echocardiogram History of stress test Stage 3a chronic kidney disease (CKD) Mixed hyperlipidemia HTN (hypertension) Internal hemorrhoids without mention of complication Osteoporosis Osteopenia Home Medications ?Medication ?Instructions ?Recorded ?Last Taken ?Type acetaminophen 500 mg capsule 500 mg PO Q6H PRN pain Unknown History carboxymethylcellulose sodium 0.5 1 drp ophthalmic (ey e) DAILY 04/26/24 Unknown History % eye drops (Refresh Tears) famotidine 40 mg tablet 40 mg PO QHS 04/26/24 Unknow n History loratadine 10 mg tablet 10 mg PO DAILY PRN allergy s ymptoms 04/26/24 Unknown History multivitamin 1 tab PO DAILY 04/26/24 Unkn own History naproxen sodium 220 mg tablet 220 mg PO BID PRN pain 0 04/26/24 Unknown History (Aleve) rosuvastatin 5 mg tablet 5 mg PO QHS 04/26/24 Unknown History estradiol 0.01% (0.1 mg/gram) 1 appful vaginal 2XW Unknown History vaginal cream amlodipine 5 mg tablet 5 mg PO QDAY #90 tabs 02/09/25 07:00 Rx Allergy/AdvReac Type Severity Reaction Status Date / Time alendronate sodium (From AdvReac Intermediate GI upset Verified 06/11/25 09:37 Fosamax) ibandronate sodium (From AdvReac Intermediate migraine Verified 06/11/25 09:37 Boniva) risedronate sodium (From AdvReac Intermediate bones Verified 06/11/25 09:37 Actonel) aching Family History Mother Thyroid disorder Osteoporosis Aortic stenosis Father Hypertension Osteoporosis Sister Thyroid disorder Brother Thyroid disorder CAD (coronary artery disease), Onset Age: 50 stents Surgical History Hx of colonoscopy History of wisdom tooth extraction Hx of elbow surgery (~2001) Hx of knee surgery (~2001) History of facial surgery Hx of hand surgery History of tonsillectomy and adenoidectomy Social History Smoking Status: Never smoker how long ago did patient quit smokin alcohol intake: current alcohol intake frequency: a few times a month substance use type: does not use caffeine: Yes Type: tea Number of servings: 4 Review of Systems (Anesthesia) ROS Narrative System reviewed and no additional complaints, except as documented.
--- NOTE | 2025-06-11 09:55 | PRE.ANES_ITS ---
ASA Classification* ASA Classification ASA Classification: 3 Assessment & Plan Anesthesia* Anesthesia Assessment Anesthesia Assessment: Discussed sedation and/or anesthesia options, risks, benefits, and alternatives with patient/parents/legal guardian/POA. Questions invited. The patient/parents/legal guardian/POA seems to understand and agrees to proceed with anesthesia plan. Reviewed the physical assessment, medical history, allergy history and patient home medications list prior to surgery/procedure/anesthetic and documented any changes. Performed airway and anesthesia risk assessments. 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 When Was Last Pacemaker Check QUESTION #4 FULL TEXT: You/Your Family Experience fever (hyperthermia) with Anesthesia Last Oral Intake Last Oral intake: Last Oral Intake NPO since 06:30 06/11/25 09:38 Meds taken in AM with sips of No 06/11/25 09:38 water? 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 - diesel powerplant supervisor Female Yes 06/06/25 09:05 HX of Motion Sickness Yes 06/06/25 09:05 HX of N/V After Surgery No 06/06/25 09:05 Non-Smoker Yes 06/06/25 09:05 Duration of Surgery greater No 06/06/25 09:05 than 60 minutes Number of Risk Factors 3 06/06/25 09:05 PONV Score Moderate Risk 06/06/25 09:05 Height & Weight Height & Weight: Anesthesia: Height & Weight Height 5 ft 3 in 06/11/25 09:38 Weight: 73 kg 06/11/25 09:38 Body Mass Index (BMI) 28.5 06/11/25 09:38 Respiratory Assessment Respiratory Assessment - diesel powerplant supervisor: Respiratory Tract Infection Hx - diesel powerplant supervisor Hx Respiratory Tract Infection No 06/06/25 09:05 STOP Sleep Apnea STOP Sleep Apnea - diesel powerplant supervisor: STOP Sleep Apnea - diesel powerplant supervisor Hx Hypertension Yes: ON MEDS 06/06/25 09:05 Hx Sleep Apnea No 06/06/25 09:05 CPAP BIPAP Do you snore loudly (louder No 06/06/25 09:05 than talking or can be heard Do you often feel tired/ No 06/06/25 09:05 fatigued/ sleepy during daytime? Has anyone observed you stop No 06/06/25 09:05 breathing during sleep? STOP Results Negative 06/06/25 09:05 QUESTION #5 FULL TEXT : Do you snore loudly (louder than talking or can be heard through closed doors)? 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 Specify any problems Hx of Preganancy in last 3 No 06/06/25 09:05 Months Nurse Filling Out Transfusion JZOLLINGE 06/06/25 09:05 & Questions: Date: 06/06/25 06/06/25 09:05 Time: 09:07 06/06/25 09:05 Patient unable to answer at this time (ie. 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: /Reproductive Hx- diesel powerplant supervisor Hx Now No 06/06/25 09:05 Gestational Age (in weeks): EDC: Hx Hx Para Hx Section SAB No 06/06/25 09:05 Active Medications Active Medications: Current Medications Generic Name Dose Route Start Last Admin Trade Name Freq PRN Reason Stop Dose Admin Lactated Ringer's 1,000 mls @ 15 mls/hr 06/11/25 09:30 06/11/25 09:44 IV 15 mls/hr .Q48H STEVO Administration PFSH Medical History Dietary restriction Loss of hearing Wears glasses Alcohol use Post-menopausal Abrasion Arthritis Anemia Excessive bleeding Back pain Migraine headache Injury of head and neck History of hiatal hernia Ulcerative proctitis Gastric reflux Non-smoker Shortness of breath on exertion Leg cramps History of pain when walking Cardiology follow-up encounter History of echocardiogram History of stress test Stage 3a chronic kidney disease (CKD) Mixed hyperlipidemia HTN (hypertension) Internal hemorrhoids without mention of complication Osteoporosis Osteopenia Home Medications ?Medication ?Instructions ?Recorded ?Last Taken ?Type acetaminophen 500 mg capsule 500 mg PO Q6H PRN pain Unknown History carboxymethylcellulose sodium 0.5 1 drp ophthalmic (ey e) DAILY 04/26/24 Unknown History % eye drops (Refresh Tears) famotidine 40 mg tablet 40 mg PO QHS 04/26/24 Unknow n History loratadine 10 mg tablet 10 mg PO DAILY PRN allergy s ymptoms 04/26/24 Unknown History multivitamin 1 tab PO DAILY 04/26/24 Unkn own History naproxen sodium 220 mg tablet 220 mg PO BID PRN pain 0 04/26/24 Unknown History (Aleve) rosuvastatin 5 mg tablet 5 mg PO QHS 04/26/24 Unknown History estradiol 0.01% (0.1 mg/gram) 1 appful vaginal 2XW Unknown History vaginal cream amlodipine 5 mg tablet 5 mg PO QDAY #90 tabs 02/09/25 07:00 Rx Allergy/AdvReac Type Severity Reaction Status Date / Time alendronate sodium (From AdvReac Intermediate GI upset Verified 06/11/25 09:37 Fosamax) ibandronate sodium (From AdvReac Intermediate migraine Verified 06/11/25 09:37 Boniva) risedronate sodium (From AdvReac Intermediate bones Verified 06/11/25 09:37 Actonel) aching Family History Mother Thyroid disorder Osteoporosis Aortic stenosis Father Hypertension Osteoporosis Sister Thyroid disorder Brother Thyroid disorder CAD (coronary artery disease), Onset Age: 50 stents Surgical History Hx of colonoscopy History of wisdom tooth extraction Hx of elbow surgery (~2001) Hx of knee surgery (~2001) History of facial surgery Hx of hand surgery History of tonsillectomy and adenoidectomy Social History Smoking Status: Never smoker how long ago did patient quit smokin alcohol intake: current alcohol intake frequency: a few times a month substance use type: does not use caffeine: Yes Type: tea Number of servings: 4 Review of Systems (Anesthesia) ROS Narrative System reviewed and no additional complaints, except as documented.
--- NOTE | 2025-06-11 11:21 | PCM.POST.ANE ---
Anesthesia: Postop Eval I Current Vital Signs Temperature: 97 F Pulse Rate: 63 Blood Pressure: 102/45 Respiratory Rate: 16 Pulse Ox: 97 Oxygen Delivery Method: Room Air Assessment Airway patent: Yes Spontaneous unlabored respirations: Yes Mental status: Asleep nausea: No Vomiting: No Anesthesia Complication: No Fluid Hydration Crystalloid volume administer (ml): 400 Total IV fluid infused: 400 Progress Note Anesthesia document: Postop Eval 1 completed: Yes
--- NOTE | 2025-06-11 11:22 | OP.COLON_ITS ---
Patient Name: Smitha Ardon Procedure Date: 06/11/2025 10:48 AM Date of : 1950 Age: 75 Procedure: Colonoscopy Indications: Screening for colorectal malignant neoplasm Providers: DO Reyna Castelan MD: Chichi Page Medicines: Monitored Anesthesia Care Patient Profile: This is a 75 year old female. This is a 75 year old female. Last Colonoscopy: several years ago. Complications: No immediate complications. Procedure: Pre-Anesthesia Assessment: - Prior to the procedure, a History and Physical was performed, and patient medications and allergies were reviewed. The patient is competent. The risks and benefits of the procedure and the sedation options and risks were discussed with the patient. All questions were answered and informed consent was obtained. Patient identification and proposed procedure were verified by the physician in the pre-procedure area. Mental Status Examination: alert and oriented. Airway Examination: normal oropharyngeal airway and neck mobility. Respiratory Examination: clear to auscultation. CV Examination: normal. Prophylactic Antibiotics: The patient does not require prophylactic antibiotics. Prior Anticoagulants: The patient has taken no anticoagulant or antiplatelet agents except for NSAID medication. ASA Grade Assessment: II - A patient with mild systemic disease. After reviewing the risks and benefits, the patient was deemed in satisfactory condition to undergo the procedure. The anesthesia plan was to use monitored anesthesia care (MAC). Immediately prior to administration of medications, the patient was re-assessed for adequacy to receive sedatives. The heart rate, respiratory rate, oxygen saturations, blood pressure, adequacy of pulmonary ventilation, and response to care were monitored throughout the procedure. The physical status of the patient was re-assessed after the procedure. After I obtained informed consent, the scope was passed under direct vision. Throughout the procedure, the patient's blood pressure, pulse, and oxygen saturations were monitored continuously. The pediatric colonoscope was introduced through the anus and advanced to the cecum, identified by appendiceal orifice and ileocecal valve. The colonoscopy was performed without difficulty. The patient tolerated the procedure well. The quality of the bowel preparation was good. Scope In: 11:00:11 AM Scope Withdrawal Time 0 hours 6 minutes 5 seconds Scope Out: 11:12:15 AM Total Procedure Duration Time 0 hours 12 minutes 4 seconds Findings: The perianal and digital rectal examinations were normal. Many small and large-mouthed diverticula were found in the recto-sigmoid colon, sigmoid colon, descending colon, transverse colon and ascending colon. There was no evidence of diverticular bleeding. The exam was otherwise without abnormality on direct and retroflexion views. Impression: - Moderate diverticulosis in the recto-sigmoid colon, in the sigmoid colon, in the descending colon, in the transverse colon and in the ascending colon. There was no evidence of diverticular bleeding. - The examination was otherwise normal on direct and retroflexion views. - No specimens collected. Recommendation: - Discharge patient to home. - Resume previous diet. - Continue present medications. - Repeat colonoscopy in 5 years for surveillance. Procedure Code(s): --- Professional --- 49453, Colonoscopy, flexible; diagnostic, including collection of specimen(s) by brushing or washing, when performed (separate procedure) CPT copyright 2021 [employer]. All rights reserved. The codes documented in this report are preliminary and upon medical coder review may be revised to meet current compliance requirements. Federico Malone DO 06/11/2025 11:21:56 AM This report has been signed electronically. Number of Addenda: 0 Note Initiated On: 06/11/2025 10:48 AM
--- NOTE | 2025-06-11 11:22 | OP.PROVAT_ITS ---
06/11/2025 [facility] [address] [address] [place] [address] Re : Colonoscopy procedure for Smitha Ardon Dear Dr. Page This procedure was performed on Wednesday, June 11, 2025. My impressions and recommendations are as follows: Impressions : - Moderate diverticulosis in the recto-sigmoid colon, in the sigmoid colon, in the descending colon, in the transverse colon and in the ascending colon. There was no evidence of diverticular bleeding. - The examination was otherwise normal on direct and retroflexion views. - No specimens collected. Recommendations : - Discharge patient to home. - Resume previous diet. - Continue present medications. - Repeat colonoscopy in 5 years for surveillance. My findings are described in the full procedure note, which is enclosed. If I can be of further assistance, please feel free to contact me at . Sincerely, Federico Friend, 06/11/2025 11:21:56 AM This report has been signed electronically.
--- NOTE | 2025-06-11 11:22 | OP.COLON_ITS ---
Patient Name: Smitha Ardon Procedure Date: 06/11/2025 10:48 AM Date of : 1950 Age: 75 Procedure: Colonoscopy Indications: Screening for colorectal malignant neoplasm Providers: DO Reyna Castelan MD: Chichi Page Medicines: Monitored Anesthesia Care Patient Profile: This is a 75 year old female. This is a 75 year old female. Last Colonoscopy: several years ago. Complications: No immediate complications. Procedure: Pre-Anesthesia Assessment: - Prior to the procedure, a History and Physical was performed, and patient medications and allergies were reviewed. The patient is competent. The risks and benefits of the procedure and the sedation options and risks were discussed with the patient. All questions were answered and informed consent was obtained. Patient identification and proposed procedure were verified by the physician in the pre-procedure area. Mental Status Examination: alert and oriented. Airway Examination: normal oropharyngeal airway and neck mobility. Respiratory Examination: clear to auscultation. CV Examination: normal. Prophylactic Antibiotics: The patient does not require prophylactic antibiotics. Prior Anticoagulants: The patient has taken no anticoagulant or antiplatelet agents except for NSAID medication. ASA Grade Assessment: II - A patient with mild systemic disease. After reviewing the risks and benefits, the patient was deemed in satisfactory condition to undergo the procedure. The anesthesia plan was to use monitored anesthesia care (MAC). Immediately prior to administration of medications, the patient was re-assessed for adequacy to receive sedatives. The heart rate, respiratory rate, oxygen saturations, blood pressure, adequacy of pulmonary ventilation, and response to care were monitored throughout the procedure. The physical status of the patient was re-assessed after the procedure. After I obtained informed consent, the scope was passed under direct vision. Throughout the procedure, the patient's blood pressure, pulse, and oxygen saturations were monitored continuously. The pediatric colonoscope was introduced through the anus and advanced to the cecum, identified by appendiceal orifice and ileocecal valve. The colonoscopy was performed without difficulty. The patient tolerated the procedure well. The quality of the bowel preparation was good. Scope In: 11:00:11 AM Scope Withdrawal Time 0 hours 6 minutes 5 seconds Scope Out: 11:12:15 AM Total Procedure Duration Time 0 hours 12 minutes 4 seconds Findings: The perianal and digital rectal examinations were normal. Many small and large-mouthed diverticula were found in the recto-sigmoid colon, sigmoid colon, descending colon, transverse colon and ascending colon. There was no evidence of diverticular bleeding. The exam was otherwise without abnormality on direct and retroflexion views. Impression: - Moderate diverticulosis in the recto-sigmoid colon, in the sigmoid colon, in the descending colon, in the transverse colon and in the ascending colon. There was no evidence of diverticular bleeding. - The examination was otherwise normal on direct and retroflexion views. - No specimens collected. Recommendation: - Discharge patient to home. - Resume previous diet. - Continue present medications. - Repeat colonoscopy in 5 years for surveillance. Procedure Code(s): --- Professional --- 54032, Colonoscopy, flexible; diagnostic, including collection of specimen(s) by brushing or washing, when performed (separate procedure) CPT copyright 2021 [employer]. All rights reserved. The codes documented in this report are preliminary and upon stock driver review may be revised to meet current compliance requirements. Federico Malone DO 06/11/2025 11:21:56 AM This report has been signed electronically. Number of Addenda: 0 Note Initiated On: 06/11/2025 10:48 AM
--- NOTE | 2025-06-11 11:22 | OP.PROVAT_ITS ---
06/11/2025 Chichi Page [id number] [place] [address] Re : Colonoscopy procedure for Smitha Ardon Dear Dr. Page This procedure was performed on Wednesday, June 11, 2025. My impressions and recommendations are as follows: Impressions : - Moderate diverticulosis in the recto-sigmoid colon, in the sigmoid colon, in the descending colon, in the transverse colon and in the ascending colon. There was no evidence of diverticular bleeding. - The examination was otherwise normal on direct and retroflexion views. - No specimens collected. Recommendations : - Discharge patient to home. - Resume previous diet. - Continue present medications. - Repeat colonoscopy in 5 years for surveillance. My findings are described in the full procedure note, which is enclosed. If I can be of further assistance, please feel free to contact me at . Sincerely, Federico Friend, 06/11/2025 11:21:56 AM This report has been signed electronically.
== END 2025-06-11 12:03 | disposition home or self-care (01) ==
LOC: EN 09:17 → AC 09:18
PROVIDERS: PCP Internal Medicine; Referring Provider Internal Medicine; Visit Provider Internal Medicine Gastroenterology
PROC: 0DJD8ZZ Inspection of Lower Intestinal Tract, Via Natural or Artificial Opening Endoscopic (ICD-10-PCS; CPT 45378; principal; 2025-06-11 10:25)
DX: Z12.11 Encounter for screening for malignant neoplasm of colon (principal); N18.31 Chronic kidney disease, stage 3a; K57.30 Diverticulosis of large intestine without perforation or abscess without bleeding; I12.9 Hypertensive chronic kidney disease with stage 1 through stage 4 chronic kidney disease, or unspecified chronic kidney disease; E78.2 Mixed hyperlipidemia; K21.9 Gastro-esophageal reflux disease without esophagitis; Z79.83 Long term (current) use of bisphosphonates; Z79.899 Other long term (current) drug therapy
CPT/HCPCS: G0121; J2405